=== PATIENT | male | born 1930 | race Caucasian/White ===

== ENCOUNTER 2016-12-24 07:55 | Day surgery (SDC) | payer MEDICARE, BC, MEDICAID ==
[~2016-12-24 07:55] MED LIST: Lactated Ringers 1,000 ML IV SCH; Lidocaine 1%/Sod Bicarbonate in NS 8.4% 1 ML Syringe IV PRN; Sodium Chloride 0.9% 10 ML Syringe FLUSH PRN
[2016-12-24] MEDS ORDERED: Lidocaine 1% 30 ML SDV ONE (09:36)
--- NOTE | 2016-12-24 10:07 | PCM.PREANE ---
Preanesthetic Assessment - Anesthesia/Transfusion/Family Hx Anesthesia History: Prior Anesthesia Without Reaction Family History of Anesthesia Reaction: No Transfusion History: Prior Transfusion Without Reaction - Review of Systems General: No Symptoms Pulmonary: No Symptoms Cardiovascular: No Symptoms Gastrointestinal: Nausea (illness several weeks ago. now resolved) Neurological: No Symptoms Other: Reports: Easy Bruising, Depression, Anxiety - Physical Assessment NPO Status Date: 12/23/16 NPO Status Time: 20:30 O2 Sat by Pulse Oximetry: 95 Respiratory Rate: 18 Vital Signs: Last Vital Signs Temp 36.7 C 12/24/16 08:00 Pulse 59 L 12/24/16 08:00 Resp 18 12/24/16 08:00 BP 155/76 H 12/24/16 08:00 Pulse Ox 95 12/24/16 08:00 Height: 1.7 m Weight: 88.451 kg ASA Class: 3 Mental Status: Alert & Oriented x3 Airway Class: Mallampati = 2 Dentition: Reports: Dentures (upper plate), Edentulous (upper), Missing Tooth/ Teeth (missing all but six front lower teeth) Thyro-Mental Finger Breadths: 3 ROM/Head Extension: Full Lungs: Clear to auscultation, Normal respiratory effort, Decreased breath sounds - Lab Values: Labs 12/17/16 WBC - 3 L Hgb - 10.4 L HCT - 32.5 L PLT - 61 L Na - 143 K - 3.6 Cl - 104 CO2 - 32 BUN - 29 H Cr - 1.02 Glu - 98 - Allergies Allergies/Adverse Reactions: Allergies Allergy/AdvReac Type Severity Reaction Status Date / Time prednisone Allergy Cannot Verified 12/23/16 15:42 Remember - Blood Blood Available: No - Anesthesia Plan Beta Deven: Metoprolol Med Last Dose Date: 12/24/16 Med Last Dose Time: 05:00 - Acknowledgements Anesthesia Type Planned: MAC Pt an Appropriate Candidate for the Planned Anesthesia: Yes Alternatives and Risks of Anesthesia Discussed w Pt/Guardian: Yes Pt/Guardian Understands and Agrees with Anesthesia Plan: Yes PreAnesthesia Questionnaire HEENT History: Reports: Hard of Hearing, Impaired Vision Other HEENT History: left hearing aid, uses glasses Cardiovascular History: Reports: CAD, High Cholesterol, Hypertension, Pacemaker , Stents, Other (See Below) Other Cardiovascular History: pericardial effusion Respiratory History: Reports: Other (See Below) Other Respiratory History: malignant pulmonary neoplasm, dyspnea Gastrointestinal History: Reports: GERD Genitourinary History: Reports: BPH, Prostate Disorder, Retention, Urinary Other Genitourinary History: urinary retention [employer]ICER History: Reports: None Musculoskeletal History: Reports: Arthritis, Back Pain, Chronic, Other (See Below) Other Musculoskeletal History: degenerative disk disease, osteopenia Psychiatric History: Reports: Anxiety, Depression Endocrine/Metabolic History: Reports: None Hematologic History: Reports: Anemia, Blood Transfusion(s), Other (See Below) Other Hematologic History: hypokalemia Immunologic History: Reports: None Oncologic (Cancer) History: Reports: Colon, Lung, Prostate Dermatologic History: Reports: None - Past Surgical History Head Surgeries/Procedures: Reports: None HEENT Surgical History: Reports: Cataract Surgery Cardiovascular Surgical History: Reports: Pacer Respiratory Surgical History: Reports: Pneumonectomy Other Respiratory Surgeries/Procedures: right lung removed GI Surgical History: Reports: Cholecystectomy, Colonoscopy, Other (See Below) Other GI Surgeries/Procedures: Colectomy Female Surgical History: Male Surgical History: Reports: Prostate Biopsy, Prostatectomy, TURP- Transurethral Resection of Prostate Neurological Surgical History: Reports: Other (See Below) Other Neurological Surgeries/Procedures: spine surgery x 2 Other Musculoskeletal Surgeries/Procedures:: Right ankle ORIF - SUBSTANCE USE Smoking Status *Q: Former Smoker Tobacco Use Within Last Twelve Months: Cigarettes Days Per Week of Alcohol Use: 0 Recreational Drug Use History: No - HOME MEDS Home Medications: Home Meds ALPRAZolam [Alprazolam ODT] 0.5 mg PO Q4H 02/02/14 [History] Allopurinol [Zyloprim] 150 mg PO DAILY 02/02/14 [History] Aspirin [[place] Chewable Aspirin] 81 mg PO DAILY 02/02/14 [History] Calcium Carb/Vit D3/Minerals [Calcium 1,200 mg Tablet Chew] 500 mg PO DAILY [History] Clopidogrel [Plavix] 75 mg PO DAILY 02/02/14 [History] Cyanocobalamin (Vitamin B12) [Vitamin B12] 1,000 mcg PO DAILY 02/02/14 [History] Ferrous Sulfate [Iron] 325 mg PO TID 02/02/14 [History] Furosemide [Lasix] 40 mg PO DAILY 02/02/14 [History] Metoprolol Tartrate 25 mg PO BID 02/02/14 [History] Mirtazapine [Remeron] 30 mg PO BEDTIME 02/02/14 [History] Potassium Chloride [Klor-Con M20] 20 meq PO BID 02/02/14 [History] Rosuvastatin [Crestor] 10 mg PO DAILY 02/02/14 [History] amLODIPine [Norvasc] 5 mg PO DAILY 02/02/14 [History] Cholecalciferol (Vitamin D3) [Vitamin D3] 1,000 unit PO DAILY 12/29/15 [History] DULoxetine HCl [Duloxetine HCl] 30 mg PO DAILY 12/29/15 [History] Docusate Sodium [Colace] 100 - 200 mg PO DAILY PRN 12/29/15 [History] Polyethylene Glycol 3350 [MiraLAX] 17 gm PO DAILY 12/29/15 [History] Sennosides [Senna] 8.6 - 17.2 mg PO DAILY PRN 12/29/15 [History] Acetaminophen [Tylenol Extra Strength] 1,000 mg PO BEDTIME 12/23/16 [History] Acetaminophen [Tylenol] 650 mg PO TID PRN 12/23/16 [History] Captopril/Hydrochlorothiazide [Captopril-Hctz 50-25 mg Tablet] 1 tab PO BID 06/29 [History] Hydrocodone/Acetaminophen [Hydrocodon-Acetaminoph 7.5-325] 1 tab PO Q4H PRN 06/29 [History] Meloxicam [Meloxicam] 7.5 mg PO DAILY 12/23/16 [History] - CURRENT (IN HOUSE) MEDS Current Meds: Current Medications Lactated Ringer's (Ringers, Lactated) 1,000 mls @ 125 mls/hr IV ASDIRECTED JOLEEN Last Admin: 12/24/16 08:30 Dose: 125 mls/hr Lidocaine/Sodium Bicarbonate (Buffered Lidocaine 1% In Ns 8.4%) 0.25 ml IV ONETIME PRN PRN Reason: Prior to IV Start Last Admin: 12/24/16 08:29 Dose: 0.25 ml Sodium Chloride (Saline Flush) 10 ml FLUSH ASDIRECTED PRN PRN Reason: Keep Vein Open Discontinued Medications Lidocaine HCl (Xylocaine-Mpf 1%) Confirm Administered Dose 30 ml .ROUTE .STK- MED ONE Stop: 12/24/16 09:37
[2016-12-24] MEDS ORDERED: Bacitracin Oint 15 GM Tube ONE (10:48)
[2016-12-24] MEDS ORDERED: Lidocaine 1% with EPINEPHrine 1:100,000 20 ML MDV ONE (10:48)
[2016-12-24] MEDS ORDERED: Propofol 200 MG/20 ML SDV ONE (11:13)
[2016-12-24] MEDS ORDERED: fentaNYL 100 MCG/2 ML SDV ONE (11:14)
--- NOTE | 2016-12-24 12:44 | PCM.OPNOTE ---
- General Post-Op/Procedure Note Date of Surgery/Procedure: 12/24/16 Operative Procedure(s): excision of Basal cell cancer left cheek and rt cheek under frozen section control and excision of lesion on the left neck (no frozen section control Pre Op Diagnosis: basal cell cancer rt and left cheek and suspecious lesion left neck Post-Op Diagnosis: Same Anesthesia Technique: MAC Primary Surgeon: Socrates Marion EBL in mLs: 30 Complications: None Condition: Good
[2016-12-24 13:28] VITALS: BP 154/74
--- NOTE | 2016-12-25 09:46 | OR ---
DATE OF OPERATION: 12/24/2016 SURGEON: Socrates Marion MD PREOPERATIVE DIAGNOSIS: Basal cell carcinoma of the left cheek and right cheek; and suspicious lesion, possible basal cell, on the left side of the neck. POSTOPERATIVE DIAGNOSIS: Basal cell carcinoma of the left cheek and right cheek; and suspicious lesion, possible basal cell, on the left side of the neck. OPERATION PERFORMED: 1. Excision, under frozen section control, with layered closure of basal cell carcinoma of the left cheek and right cheek. 2. Excision of lesion on the left neck with primary closure. FINDINGS: Lesion in margin, left cheek, 2 cm; lesion in margin, right cheek, 2 cm; and lesion in margin, left neck, 3 cm. ANESTHESIA: Procedure done under MAC analgesia and 1% Xylocaine. DESCRIPTION OF PROCEDURE: The patient was taken to the operating room, placed in supine position, connected to monitoring equipment, and given IV sedation. The left cheek was first prepped with Betadine and then it was marked, measured, and anesthetized with 1% Xylocaine and elliptically incised in Mary Jo's lines. This was sent to pathology with a silk suture on the medial margin. This came back with close medial margin and possible involvement of posterior deep margin. Re-excision of the medial margin was performed with inking the tumor site and also reexcision of the base with inking the tumor site. This went back for frozen section, showing that the lesion was completely excised. Bleeding points were controlled with electrocautery and suture ligature of 3-0 Vicryl suture, the subcuticular tissue closed with interrupted 3-0 Vicryl suture, and the skin with a running 4- 0 Prolene suture. Attention was directed to the left neck, and this was elliptically incised. Bleeding points were controlled with electrocautery. The skin closed, scalp, with 0 Prolene suture in a running mattress suture fashion. Attention was then directed to the right cheek. It was prepped with Betadine, marked, measured, and elliptically incised to conform with Mary Jo's lines. Medial side was marked with a silk suture, was sent for frozen section which showed that it was completely excised, clear margins. Bleeding points were controlled with electrocautery and the deep tissues brought together with interrupted 3-0 Vicryl suture, and the skin with interrupted 4-0 Prolene suture. Sterile dressing placed. The patient tolerated the procedure and was sent to recovery room in a stable condition. Estimated blood loss was approximately 30 mL. ESTIMATED BLOOD LOSS: MMODAL /[id number]
== END 2016-12-24 14:00 | disposition home or self-care (01) ==
LOC: JD.SDS 07:55
PROVIDERS: ATTEND Surgery
DX: C44.319 Basal cell carcinoma of skin of other parts of face (principal); C44.41 Basal cell carcinoma of skin of scalp and neck; D64.9 Anemia, unspecified; F41.9 Anxiety disorder, unspecified; Z85.038 Personal history of other malignant neoplasm of large intestine; Z85.118 Personal history of other malignant neoplasm of bronchus and lung; E78.5 Hyperlipidemia, unspecified; I10 Essential (primary) hypertension; Z85.46 Personal history of malignant neoplasm of prostate; Z95.0 Presence of cardiac pacemaker; Z98.890 Other specified postprocedural states; Z95.5 Presence of coronary angioplasty implant and graft; Z79.82 Long term (current) use of aspirin; Z79.1 Long term (current) use of non-steroidal anti-inflammatories (NSAID); Z79.02 Long term (current) use of antithrombotics/antiplatelets; Z79.899 Other long term (current) drug therapy; Z87.891 Personal history of nicotine dependence; Z88.8 Allergy status to other drugs, medicaments and biological substances
CPT/HCPCS: 11623; 11642; 12002; 12052; 88305; 88331; 88332; A9270; J3010; J7120; 00300; J2704

== ENCOUNTER 2018-08-30 21:33 | Inpatient (IN) | payer MEDICARE, BC, MEDICAID ==
--- NOTE | 2018-08-30 21:51 | EDM.PDOC ---
ED HPI GENERAL MEDICAL PROBLEM - General Chief Complaint: Neurological Problem Stated Complaint: [facility] Time Seen by Provider: 08/30/18 21:46 Source of Information: Reports: Family (family-- daughter and supply history ) History Limitations: Reports: Altered Mental Status (kingsleyetn is lethargic and offers no verbal response. Opens Lt eye on occassion. ) - History of Present Illness INITIAL COMMENTS - FREE TEXT/NARRATIVE: 88-year-old male presents to the ED per ambulance from local half-way. Patient normally is alert and verbal and able to converse easily with his and family. Apparently he's become more lethargic over the last 48 hours. Nurses at the half-way and had to try and help feed him. He does wear a fentanyl patch 75 g per hour which is on his right upper chest which apparently was changed today. Removed. At the time of presentation he is nonverbal and lethargic with BP 105/59. It's unclear how much fluids he may have gotten today. CODE STATUS is listed as DO NOT RESUSCITATE. O2 sats are fluctuating between 93 and 95% on room air. He is afebrile on exam in fact feels somewhat cool to touch. Apparently he fell recently with compression fractures in his lower back and is booked for kyphoplasty next week. He this is the reason he is on the fentanyl patch. Reviewed his med list reveals the patient received 2 [place] tablets 7.5/325 mg [id number] hrs. tonight. He's also been receiving alprazolam 0.5 mg every 4 hours and he did receive this evening's dose. He also received Remeron 30 mg by mouth at 1930 hrs. On inspection of his pupils they're fixed and pinpoint suggest the patient is likely [place] ties. I would not intervene at this point time medications were off as his O2 sats are still in the high 90s Patient's fentanyl patch 75 g per hour was changed at 1930 hrs. tonight as well. Apparently there is no change in the dosage. Is also on gabapentin and other sedative medication. His blood pressure medications were withheld this evening. On discussion with nursing staff at the half-way they report no fever chills or cough. Onset: Gradual Onset Date: 08/29/18 ( reports telephone call from the half-way yesterday indicating that he was exhibiting increased lethargy and they were having to feed him and he wasn't near as verbal as his norm. Daughter reports she does seem over the last 3 hours that she just got back from [place]. She indicates that he showed no verbal response or response to physical stimuli heaving habitus blood sugar checked.) Duration: Day(s): (It appears something happened yesterday or during the night yesterday.) Location: Reports: Generalized (Crease lethargy. Nonverbal where he is normally verbal and communicates with his .) Quality: Reports: Other Severity: Severe (Lethargic and nonverbal which is a real change for him over the last 48 hours.) Improves with: Reports: None Worsens with: Reports: None Context: Reports: Other (Seems to become gradually more lethargic and requiring help to eat over the last 48 hours.). Denies: Activity, Exercise, Lifting, Sick Contact, Trauma Associated Symptoms: Reports: Other (Nonverbal.) - Related Data Allergies Allergy/AdvReac Type Severity Reaction Status Date / Time prednisone Allergy Cannot Verified 12/23/16 15:42 Remember Home Meds: Home Meds ALPRAZolam [Alprazolam ODT] 0.5 mg PO TID 02/02/14 [History] Allopurinol [Zyloprim] 150 mg PO DAILY 02/02/14 [History] Aspirin [[place] Chewable Aspirin] 81 mg PO DAILY 02/02/14 [History] Calcium Carb/Vit D3/Minerals [Calcium 1,200 mg Tablet Chew] 500 mg PO DAILY [History] Clopidogrel [Plavix] 75 mg PO DAILY 02/02/14 [History] Cyanocobalamin (Vitamin B12) [Vitamin B12] 1,000 mcg PO DAILY 02/02/14 [History] Ferrous Sulfate [Iron] 325 mg PO DAILY 02/02/14 [History] Metoprolol Tartrate 25 mg PO BID 02/02/14 [History] Potassium Chloride [Klor-Con M20] 20 meq PO BID 02/02/14 [History] Cholecalciferol (Vitamin D3) [Vitamin D3] 1,000 unit PO DAILY 12/29/15 [History] DULoxetine HCl [Duloxetine HCl] 30 mg PO DAILY 12/29/15 [History] Docusate Sodium [Colace] 200 mg PO DAILY 12/29/15 [History] Polyethylene Glycol 3350 [MiraLAX] 17 gm PO DAILY PRN 12/29/15 [History] Acetaminophen [Tylenol] 650 mg PO BEDTIME 12/23/16 [History] Captopril/Hydrochlorothiazide [Captopril-Hctz 50-25 mg Tablet] 1 tab PO BID 06/29 [History] Hydrocodone/Acetaminophen [Hydrocodon-Acetaminoph 7.5-325] 1 tab PO QID [History] ALPRAZolam [Alprazolam Odt] 1 mg PO BEDTIME 08/30/18 [History] ALPRAZolam [Alprazolam Odt] 1 mg PO DAILY 08/30/18 [History] Acetaminophen [Tylenol] 325 mg PO TID PRN 08/30/18 [History] Bisacodyl [Dulcolax] 10 mg RC DAILY PRN 08/30/18 [History] Celecoxib 200 mg PO DAILY 08/30/18 [History] Doxazosin Mesylate [Cardura XL] 8 mg PO BEDTIME 08/30/18 [History] Gabapentin [Neurontin] 300 mg PO TID 08/30/18 [History] Hydrocodone/Acetaminophen [[place] 7.5-325 Tablet] 2 tab PO BEDTIME 08/30/18 [ History] Mirtazapine [Remeron] 45 mg PO BEDTIME 08/30/18 [History] Ondansetron [Zofran ODT] 4 mg PO TID PRN 08/30/18 [History] Pantoprazole Sodium [Protonix] 40 mg PO DAILY 08/30/18 [History] Polyvinyl Alcohol/Povidone/Pf [Refresh Classic Eye Drops] 1 drop EYEBOTH DAILY 08/30/18 [History] atorvaSTATin [Lipitor] 10 mg PO BEDTIME 08/30/18 [History] fentaNYL [Duragesic] 75 mcg TD Q72H 08/30/18 [History] Past Medical History HEENT History: Reports: Hard of Hearing, Impaired Vision Other HEENT History: left hearing aid, uses glasses Cardiovascular History: Reports: CAD, High Cholesterol, Hypertension, Pacemaker , Stents, Other (See Below) Other Cardiovascular History: pericardial effusion Respiratory History: Reports: Other (See Below) Other Respiratory History: malignant pulmonary neoplasm, dyspnea. Has had a right-sided pneumonectomy. Unclear if this was partial or complete Gastrointestinal History: Reports: GERD, Other (See Below) (History of colon cancer.) Genitourinary History: Reports: BPH, Prostate Disorder (History of prostate cancer.), Retention, Urinary Other Genitourinary History: urinary retention [employer] History: Reports: None Musculoskeletal History: Reports: Arthritis, Back Pain, Chronic, Other (See Below) Other Musculoskeletal History: degenerative disk disease, osteopenia. Previous lumbar fusion L5-S1. Recent fall with compression fracture of thoracic 12 vertebral. Psychiatric History: Reports: Anxiety, Depression Endocrine/Metabolic History: Reports: None Hematologic History: Reports: Anemia, Blood Transfusion(s), Other (See Below) Other Hematologic History: hypokalemia Immunologic History: Reports: None Oncologic (Cancer) History: Reports: Colon, Lung, Prostate Dermatologic History: Reports: None - Past Surgical History Head Surgeries/Procedures: Reports: None HEENT Surgical History: Reports: Cataract Surgery Cardiovascular Surgical History: Reports: Pacer Respiratory Surgical History: Reports: Pneumonectomy (Right side) Other Respiratory Surgeries/Procedures: right lung removed GI Surgical History: Reports: Cholecystectomy, Colonoscopy, Other (See Below) ( History right believes that the midline laparotomy incision was for colon cancer. Appears that a portion of his colon was resected she is unsure which segment.) Other GI Surgeries/Procedures: Colectomy Male Surgical History: Reports: Prostate Biopsy, Prostatectomy, TURP- Transurethral Resection of Prostate Neurological Surgical History: Reports: Other (See Below) Other Neurological Surgeries/Procedures: spine surgery x 2. Recent fall mid July. He has been on fentanyl patch since July 25 of this year due to compression fracture Other Musculoskeletal Surgeries/Procedures:: Right ankle ORIF Social & Family History - Family History Family Medical History: Noncontributory - Living Situation & Occupation Living situation: Reports: Extended Care Facility (Early a resident at [facility] in [place].) Occupation: Retired ED ROS GENERAL - Review of Systems Review Of Systems: Unable To Obtain (Patient is totally obtunded and lethargic and nonverbal. Bits of history were received from the half-way as well as the daughter and the .) - Physical Exam Exam: See Below Exam Limited By: Altered Mental Status (Lethargic and nonverbal. He also hasn't moved any of his limbs.) General Appearance: Obtunded, Other (Does not appear to be in any distress. He will occasionally open his left eye but offers no verbal response.) Eye Exam: Right Eye: Other (Pupils are fixed in pinpoint at 1-2 mm and no response to light.) Throat/Mouth: Normal Inspection, Normal Lips, Normal Oropharynx, Other (Tongue is mildly dry and coated) Head Exam: Atraumatic, Normocephalic, Other (No outward signs of head or facial trauma.) Neck: Normal Inspection, Supple, Non-Tender. No: Carotid Bruit, Lymphadenopathy (L), Lymphadenopathy (R) Respiratory/Chest: No Respiratory Distress, Decreased Breath Sounds (I cannot hear any urge to the right lung field. Apparently he's had a right-sided pneumonectomy.), Other (No injury to the left lung field sounds normal with no adventitial sounds.). No: Normal Breath Sounds, Respiratory Distress Cardiovascular: Regular Rate, Rhythm, No Gallop, No Rub, Irregularly Irregular ( Occasional ectopic beats appreciated. These appear to be PVCs on the monitor), Other (He does have a pacemaker defibrillator left upper anterior chest.) GI/Abdominal: Soft, Non-Tender, No Organomegaly, No Abnormal Bruit, No Mass, Abnormal Bowel Sounds (Decreased bowel sounds), Other (Well-healed midline surgical incision from the xiphoid process to the umbilicus) Neuro Exam (Abbreviated): Unresponsive DTR: 0: Bicep (R), Bicep (L), Tricep (R), Tricep (L), Patella (R), Patella (L), Achilles (R), Achilles (L) (Completely areflexic.) Back Exam: Other (Evidence of right sided thoracotomy wound well-healed.) Extremities: Pedal Edema (1+ pitting edema both lower extremities particularly at the ankles.) Psychiatric: Other (Patient is not responsive.) Skin Exam: Cool (He is cool to touch and temperatures listed at 36.4.) EKG INTERPRETATION EKG Date: 08/30/18 Time: 20:02 Rhythm: Other (100% ventricular paced rhythm at 65/m) Rate (Beats/Min): 65 [place]: Normal P-Wave: Absent QRS: Wide EKG Interpretation Comments: No further analysis attempted due to ventricular paced rhythm. Course - Vital Signs Last Recorded V/S: Last Vital Signs Temp 36.4 C 08/30/18 21:43 Pulse 75 08/30/18 21:43 Resp 17 08/30/18 21:43 BP 105/63 08/30/18 21:43 Pulse Ox 99 08/30/18 21:43 - Orders/Labs/Meds Orders: Active Orders 24 hr Category Date Time Status Blood Glucose Check, Bedside [RC] ONETIME Care 08/30/18 21:49 Active EKG Documentation Completion [RC] STAT Care 08/30/18 21:48 Active Insert Gloria Catheter [Insert Urinary Catheter] [OM.PC] Care 08/30/18 23:15 Ordered Q24H Oxygen Therapy [RC] PRN Care 08/30/18 21:49 Active Urinary Catheter Assessment [RC] ASDIRECTED Care 08/30/18 23:08 Active Chest 1V Frontal [CR] Stat Exams 08/30/18 21:48 Taken Head wo Cont [CT] Stat Exams 08/30/18 22:38 Taken CULTURE BLOOD [BC] Stat Lab 08/30/18 22:15 Received CULTURE BLOOD [BC] Stat Lab 08/30/18 22:24 Received Dextrose 5%-0.9% NaCl [Dextrose 5%-Normal Saline] 1,000 Med 08/30/18 23:30 Active ml IV ASDIRECTED Blood Culture x2 Reflex Set [OM.PC] Stat Oth 08/30/18 21:49 Ordered Medication Orders Dextrose/Sodium Chloride (Dextrose 5%-Normal Saline) 1,000 mls @ 75 mls/hr IV ASDIRECTED JOLEEN Labs: Laboratory Tests 08/30/18 08/30/18 08/30/18 Range/Units 20:15 20:15 20:15 WBC 2.62 L (4.23-9.07) K/mm3 RBC 3.62 L (4.63-6.08) M/mm3 Hgb 10.9 L (13.7-17.5) gm/L Hct 37.4 L (40.1-51.0) % MCV 103.3 H (79.0-92.2) fl MCH 30.1 (25.7-32.2) pg MCHC 29.1 L (32.2-35.5) g/dl RDW Std Deviation 51.9 H (35.1-43.9) fL Plt Count 48 L (163-337) K/mm3 MPV 13.3 H (9.4-12.3) fl Neutrophils % (Manual) 52 (40-60) % Band Neutrophils % 0 (0-10) % Lymphocytes % (Manual) 35 (20-40) % Atypical Lymphs % 0 % Monocytes % (Manual) 10 (2-10) % Eosinophils % (Manual) 3 (0.8-7.0) % Basophils % (Manual) 0 L (0.2-1.2) Platelet Estimate Marked dec Plt Morphology Comment See note Hypochromasia Moderate RBC Morph Comment Not Reportable ESR (0-15) mm/hr PT 11.5 (9.5-12.1) SECONDS INR 1.06 APTT 28 (24-31) SECONDS Sodium 142 (136-145) mEq/L Potassium 5.5 H (3.5-5.1) mEq/L Chloride 108 H (98-107) mEq/L Carbon Dioxide 34 H (21-32) mEq/L Anion Gap 5.5 (5-15) BUN 55 H (7-18) mg/dL Creatinine 1.9 H (0.7-1.3) mg/dL Est Cr Clr Drug Dosing TNP Estimated GFR (MDRD) 34 (>60) mL/min BUN/Creatinine Ratio 28.9 H (14-18) Glucose 106 (83-115) mg/dL POC Glucose (83-110) mg/dL Lactic Acid (0.4-2.0) mmol/L Calcium 8.6 (8.5-10.1) mg/dL Magnesium 2.0 (1.8-2.4) mg/dl Total Bilirubin 0.5 (0.2-1.0) mg/dL AST 17 (15-37) U/L ALT 22 (16-63) U/L Alkaline Phosphatase 88 (46-116) U/L CK-MB (CK-2) 1.1 (0-3.6) ng/ml Troponin I 0.082 H* (0.00-0.056) ng/mL C-Reactive Protein < 0.2 (<1.0) mg/dL NT-Pro-B Natriuret Pep (0-450) pg/mL Total Protein 6.1 L (6.4-8.2) g/dl Albumin 3.1 L (3.4-5.0) g/dl Globulin 3.0 gm/dL Albumin/Globulin Ratio 1.0 (1-2) Urine Color (Yellow) Urine Appearance (Clear) Urine pH (5.0-8.0) Ur Specific [place] (1.005-1.030) Urine Protein (Negative) Urine Glucose (UA) (Negative) Urine Ketones (Negative) Urine Occult Blood (Negative) Urine Nitrite (Negative) Urine Bilirubin (Negative) Urine Urobilinogen (0.2-1.0) Ur Leukocyte Esterase (Negative) Urine RBC (0-5) /hpf Urine WBC (0-5) /hpf Ur Epithelial Cells (0-5) /hpf Urine Bacteria (FEW) /hpf Hyaline Casts (0-5) /lpf Urine Mucus 08/30/18 08/30/18 08/30/18 Range/Units 20:15 20:15 21:49 WBC (4.23-9.07) K/mm3 RBC (4.63-6.08) M/mm3 Hgb (13.7-17.5) gm/L Hct (40.1-51.0) % MCV (79.0-92.2) fl MCH (25.7-32.2) pg MCHC (32.2-35.5) g/dl RDW Std Deviation (35.1-43.9) fL Plt Count (163-337) K/mm3 MPV (9.4-12.3) fl Neutrophils % (Manual) (40-60) % Band Neutrophils % (0-10) % Lymphocytes % (Manual) (20-40) % Atypical Lymphs % % Monocytes % (Manual) (2-10) % Eosinophils % (Manual) (0.8-7.0) % Basophils % (Manual) (0.2-1.2) Platelet Estimate Plt Morphology Comment Hypochromasia RBC Morph Comment ESR 10 (0-15) mm/hr PT (9.5-12.1) SECONDS INR APTT (24-31) SECONDS Sodium (136-145) mEq/L Potassium (3.5-5.1) mEq/L Chloride (98-107) mEq/L Carbon Dioxide (21-32) mEq/L Anion Gap (5-15) BUN (7-18) mg/dL Creatinine (0.7-1.3) mg/dL Est Cr Clr Drug Dosing Estimated GFR (MDRD) (>60) mL/min BUN/Creatinine Ratio (14-18) Glucose (83-115) mg/dL POC Glucose 106 (83-110) mg/dL Lactic Acid (0.4-2.0) mmol/L Calcium (8.5-10.1) mg/dL Magnesium (1.8-2.4) mg/dl Total Bilirubin (0.2-1.0) mg/dL AST (15-37) U/L ALT (16-63) U/L Alkaline Phosphatase (46-116) U/L CK-MB (CK-2) (0-3.6) ng/ml Troponin I (0.00-0.056) ng/mL C-Reactive Protein (<1.0) mg/dL NT-Pro-B Natriuret Pep 6673 H (0-450) pg/mL Total Protein (6.4-8.2) g/dl Albumin (3.4-5.0) g/dl Globulin gm/dL Albumin/Globulin Ratio (1-2) Urine Color (Yellow) Urine Appearance (Clear) Urine pH (5.0-8.0) Ur Specific [place] (1.005-1.030) Urine Protein (Negative) Urine Glucose (UA) (Negative) Urine Ketones (Negative) Urine Occult Blood (Negative) Urine Nitrite (Negative) Urine Bilirubin (Negative) Urine Urobilinogen (0.2-1.0) Ur Leukocyte Esterase (Negative) Urine RBC (0-5) /hpf Urine WBC (0-5) /hpf Ur Epithelial Cells (0-5) /hpf Urine Bacteria (FEW) /hpf Hyaline Casts (0-5) /lpf Urine Mucus 08/30/18 08/30/18 Range/Units 22:05 22:45 WBC (4.23-9.07) K/mm3 RBC (4.63-6.08) M/mm3 Hgb (13.7-17.5) gm/L Hct (40.1-51.0) % MCV (79.0-92.2) fl MCH (25.7-32.2) pg MCHC (32.2-35.5) g/dl RDW Std Deviation (35.1-43.9) fL Plt Count (163-337) K/mm3 MPV (9.4-12.3) fl Neutrophils % (Manual) (40-60) % Band Neutrophils % (0-10) % Lymphocytes % (Manual) (20-40) % Atypical Lymphs % % Monocytes % (Manual) (2-10) % Eosinophils % (Manual) (0.8-7.0) % Basophils % (Manual) (0.2-1.2) Platelet Estimate Plt Morphology Comment Hypochromasia RBC Morph Comment ESR (0-15) mm/hr PT (9.5-12.1) SECONDS INR APTT (24-31) SECONDS Sodium (136-145) mEq/L Potassium (3.5-5.1) mEq/L Chloride (98-107) mEq/L Carbon Dioxide (21-32) mEq/L Anion Gap (5-15) BUN (7-18) mg/dL Creatinine (0.7-1.3) mg/dL Est Cr Clr Drug Dosing Estimated GFR (MDRD) (>60) mL/min BUN/Creatinine Ratio (14-18) Glucose (83-115) mg/dL POC Glucose (83-110) mg/dL Lactic Acid 0.5 (0.4-2.0) mmol/L Calcium (8.5-10.1) mg/dL Magnesium (1.8-2.4) mg/dl Total Bilirubin (0.2-1.0) mg/dL AST (15-37) U/L ALT (16-63) U/L Alkaline Phosphatase (46-116) U/L CK-MB (CK-2) (0-3.6) ng/ml Troponin I (0.00-0.056) ng/mL C-Reactive Protein (<1.0) mg/dL NT-Pro-B Natriuret Pep (0-450) pg/mL Total Protein (6.4-8.2) g/dl Albumin (3.4-5.0) g/dl Globulin gm/dL Albumin/Globulin Ratio (1-2) Urine Color Yellow (Yellow) Urine Appearance Slt cloudy H (Clear) Urine pH 5.5 (5.0-8.0) Ur Specific [place] 1.020 (1.005-1.030) Urine Protein Negative (Negative) Urine Glucose (UA) Negative (Negative) Urine Ketones Negative (Negative) Urine Occult Blood Negative (Negative) Urine Nitrite Negative (Negative) Urine Bilirubin Negative (Negative) Urine Urobilinogen 0.2 (0.2-1.0) Ur Leukocyte Esterase Negative (Negative) Urine RBC 0-5 (0-5) /hpf Urine WBC 0-5 (0-5) /hpf Ur Epithelial Cells Not seen (0-5) /hpf Urine Bacteria Not seen (FEW) /hpf Hyaline Casts 0-5 (0-5) /lpf Urine Mucus Not Reportable Meds: Medications Generic Name Dose Route Start Last Admin Trade Name Freq PRN Reason Stop Dose Admin Dextrose/Sodium Chloride 1,000 mls @ 75 mls/hr 08/30/18 23:30 Dextrose 5%-Normal Saline IV ASDIRECTED JOLEEN Discontinued Medications Generic Name Dose Route Start Last Admin Trade Name Freq PRN Reason Stop Dose Admin Furosemide 60 mg 08/30/18 23:07 08/30/18 23:30 Lasix IVPUSH 08/30/18 23:08 60 mg NOW ONE Administration Dextrose/Sodium Chloride 1,000 mls @ 500 mls/hr 08/30/18 22:00 08/30/18 22:45 Dextrose 5%-Normal Saline IV 500 mls/hr ASDIRECTED JOLEEN Administration Naloxone HCl 0.4 mg 08/30/18 22:38 08/30/18 23:25 Narcan IVPUSH 08/30/18 22:39 0.4 mg ONETIME ONE Administration - Radiology Interpretation Free Text/Narrative:: 88-year-old male presents to the ED per ambulance from [facility]. Patient is on a multitude of medications that would provide sedative affect. Apparently he's developed increased lethargy since yesterday and his become nonverbal. Normally communicates with his normally. Patient has had a recent fall with suspected fracture of his lower back and is scheduled for kyphoplasty with Dr. Qiu towards end of this month. Patient is currently on a fentanyl patch 75 mcg/h it was last changed at 1930 hrs. this evening. Patient is also on alprazolam 0.5 mg every 4 hours and he did receive his medication tonight. He also received Remeron 30 mg by mouth at bedtime dose that believe this was 1930 hrs. nor "7.5/325 mg tabs 2 at 1930 hrs. as well. On assessment his vital signs show BP was 105/68. Is now followed to 92/54. He currently has IV D5 normal saline running at 500 mils an hour. O2 sats are 97%. By history is had previous right-sided pneumonectomy for cancer. Has a history of prostate cancer and colon cancer.. Pupils are pinpoint in 1-2 mm suggesting that his current problem is that of excessive amount of opioids on board. At present his sats are well maintained at 97% on room air and he spends sleeping well. Therefore I'm not going to reverse him with Narcan. I will if his blood pressure falls any further is does not respond to IV fluid bolus. The Fentanyl patch has been removed. Due to his temperature being 96.4 last tube him to be placed in the bear hugger to warm him. Septic workup will also be completed as well as rule out of cardiac event. One view chest x-ray be obtained . Blood sugar at the bedside side was 106. - Re-Assessments/Exams Free Text/Narrative Re-Assessment/Exam: 08/30/18 22:29 BP is 97/53 at this time. 08/30/18 22:43 but pressures fallen to 94/47. I will therefore give him Narcan 0.4 mg IV bolus. I spoke with Dr. Lopez test preparation tutor hospitalist. He likely needs to be admitted to the intensive care unit for management of his hypothermia and suspect opioid overdose. CT head will also be performed to rule out any intracranial cause for his altered level of mental status. Review of x-rays done August 21 reveal that he has a severe compression fracture of the T12 vertebra. 08/30/18 22:53 pressure has jumped up to 128/61 well being catheterized. Therefore responding to stimuli. 08/30/18 23:03 chest x-ray done portably reveals complete white out of the right lung field compatible with complete pneumonectomy in the past. The heart has moved over to the right side. It appears enlarged. There is a prominent aortic arch. There appears to be diffuse vascular congestion involving the right perihilar area and lung. No pleural effusion. 08/30/18 23:06 Labs reveal a leukopenia with a white count of 2.62. Neutrophils 52% with no bands reported and 35% lymphocytes. Hemoglobin is 10.9 with hematocrit of 37.4 platelet count is also low at 48,000. Recent appears to have some form of bone marrow suppression. PT is 11.5 with an INR of 1.06. PTT is 28. Sodium is 142. Potassium is mildly elevated at 5.5. He has received Lasix 40 mg IV and this should suffice to help bring it down. Chloride is 108 with a bicarbonate of 34 i.e. CO2 retainer. Anion gap is 5.5. BUN is 55. With a creatinine of 1.9. GFR is 34 i.e. stage III chronic kidney disease and does appear to be volume depleted. BUN/creatinine ratio is 28.9. Glucose 106 lactic acid 0.5. Calcium 8.6 magnesium normal at 2.0. Liver function normal. CK-MB fraction 1.1. Troponin I is slightly elevated at 0.082. This is within normal limits when compared to his age. C-reactive protein is less than 0.2. BNP is markedly elevated at 6673. Total protein is 6.1 with an albumin fraction low at 3.1. The dip on the urine is normal. The micro-is pending. His scar blood pressure is down to 97/81. Going to turn his IV down to 100 mils per hour because he is in significant failure. Will give him Lasix 60 mg IV. Gloria catheter will be placed with 0 metric measuring. 08/30/18 23:23 CT head has been completed. It does not reveal any mass effect or midline shift or intracranial hemorrhage. It shows advanced degenerative changes. Diffuse demyelination changes in both basal ganglia appreciated. Slightly dilated lateral ventricles was encephalomalacia of the anterior horns. No obvious infarct identified. Urinalysis micro-is completely normal. Gloria catheter will now be placed and dose of Narcan 0.4 mg has been given. Free Text/Narrative Re-Assessment/Exam: 08/30/18 23:30 he is much more alert agitated somewhat shaking open both eyes and did try to speak a little bit to me. BP is 132/61 after the Narcan 0.4 mg IV. 08/31/18 00:11 he still little bit fidgety and agitated but he's not become verbal or anything yet. Her pressure is much improved at 132/99. The catheter has been placed due to the need for Lasix. Twice would be wet at all times. Spoke with on-call hospice Dr. Lopez and she agrees to admission to the [facility] surgery on telemetry. I will write bridge orders in this regard IV has been turned down to D5 normal saline at 75 mils per hour. He will require repeat Lasix dose at 0600 hrs. this morning. Stressed the findings with his and daughter. Departure - Departure Time of Disposition: 00:29 Disposition: Admitted As Inpatient 68 Condition: Fair Clinical Impression: Altered level of consciousness, Thrombocytopenia, Volume depletion, Chronic renal insufficiency, stage III (moderate) Adverse effects of medication Qualifiers: Encounter type: initial encounter Qualified Code(s): T50.905A - Adverse effect of unspecified drugs, medicaments and biological substances, initial encounter Traumatic compression fracture of T12 thoracic vertebra Qualifiers: Encounter type: subsequent encounter Fracture healing: with routine healing Qualified Code(s): S22.080D - Wedge compression fracture of T11-T12 vertebra, subsequent encounter for fracture with routine healing Leukopenia Qualifiers: Leukopenia type: unspecified Qualified Code(s): D72.819 - Decreased white blood cell count, unspecified Anemia Qualifiers: Anemia type: iron deficiency Congestive heart failure Qualifiers: Heart failure type: diastolic Heart failure chronicity: acute on chronic Qualified Code(s): I50.33 - Acute on chronic diastolic (congestive) heart failure - Discharge Information *PRESCRIPTION DRUG MONITORING PROGRAM REVIEWED*: Not Applicable *COPY OF PRESCRIPTION DRUG MONITORING REPORT IN PATIENT BERNADETTE: Not Applicable Referrals: Espinoza Ervin MD [Primary Care Provider] - Forms: ED Department Discharge - My Orders Last 24 Hours: My Active Orders 08/30/18 21:48 EKG Documentation Completion [RC] STAT Chest 1V Frontal [CR] Stat 08/30/18 21:49 Blood Glucose Check, Bedside [RC] ONETIME Oxygen Therapy [RC] PRN Blood Culture x2 Reflex Set [OM.PC] Stat 08/30/18 22:15 CULTURE BLOOD [BC] Stat 08/30/18 22:24 CULTURE BLOOD [BC] Stat 08/30/18 22:38 Head wo Cont [CT] Stat 08/30/18 23:08 Urinary Catheter Assessment [RC] ASDIRECTED 08/30/18 23:15 Insert Gloria Catheter [Insert Urinary Catheter] [OM.PC] Q24H 08/30/18 23:30 Dextrose 5%-0.9% NaCl [Dextrose 5%-Normal Saline] 1,000 ml IV ASDIRECTED - Assessment/Plan Last 24 Hours: My Active Orders 08/30/18 21:48 EKG Documentation Completion [RC] STAT Chest 1V Frontal [CR] Stat 08/30/18 21:49 Blood Glucose Check, Bedside [RC] ONETIME Oxygen Therapy [RC] PRN Blood Culture x2 Reflex Set [OM.PC] Stat 08/30/18 22:15 CULTURE BLOOD [BC] Stat 08/30/18 22:24 CULTURE BLOOD [BC] Stat 08/30/18 22:38 Head wo Cont [CT] Stat 08/30/18 23:08 Urinary Catheter Assessment [RC] ASDIRECTED 08/30/18 23:15 Insert Gloria Catheter [Insert Urinary Catheter] [OM.PC] Q24H 08/30/18 23:30 Dextrose 5%-0.9% NaCl [Dextrose 5%-Normal Saline] 1,000 ml IV ASDIRECTED
[2018-08-30] MEDS ORDERED: Dextrose 5%-0.9% NaCl 1,000 ML IV SCH ×2 (22:00→23:30)
[2018-08-30] MEDS ORDERED: Naloxone 0.4 MG/ML SDV IVPUSH ONE (22:38)
[2018-08-30] MEDS ORDERED: Furosemide 40 MG/4 ML VIAL IVPUSH ONE (23:07)
[2018-08-31] MEDS ORDERED: Dextrose 5%-0.9% NaCl 1,000 ML IV SCH (02:45)
[2018-08-31] MEDS ORDERED: Furosemide 20 MG/2 ML VIAL IVPUSH ONE (06:00)
--- NOTE | 2018-08-31 06:33 | PCM.HP ---
H&P History of Present Illness - General Date of Service: 08/31/18 Admit Problem/Dx: Admission Diagnosis/Problem Admission Diagnosis/Problem Altered level of consciousness Source of Information: Patient, Old Records, Provider, RN, RN Notes Reviewed History Limitations: Reports: No Limitations - History of Present Illness Initial Comments - Free Text/Narative: Ehsan Lama is a 88 yo male who presents to our ED yesterday evening () via [facility] [place] from [facility]. Patient reportedly became more lethargic over the past 48 hours. He is usually alert and able to converse easily with and family. He does have a 75 g fentanyl patch on his right upper chest which was changed in the [facility] earlier in the day. His oxygen saturations were noted to be 9395% on room air and he was afebrile , actually appearing cool to the touch. He reportedly recently fell with compression fractures to his lower back and has a kyphoplasty booked for next week. This is why he is on the fentanyl patch. ED provider reviewed [facility] med list and it was also noted he received 2 Hawkins tablets of 7.5/325 mg earlier in the evening. He is also on alprazolam 0.5 mg every 4 hours and Remeron 30 mg in the evening. In the inial exam he is noted to have pinpoint pupils which are fixed. Oxygen saturation was remained in the high 90s. It is reported that his phenyl patch has not been changed in dosage. He is also noted to be on gabapentin another set sedated medications. He's recently had no fever or chills or cough. In the ED temperature 36.4C. Pulse 75. Respirations 17. Blood pressure 105/ 63. Pulse ox 99%. 12-lead EKG is obtained showing 100% ventricular paced rhythm at 65 beats per minutes. Labs are obtained: WBC is actually low at 2.62. Hemoglobin low at 10.9. Hematocrit low at 37.4. He is macrocytic. Platelet are very low at 48,000. Neutrophils are normal at 52%. PT is 11.5. INR 1.06. APTT 28. Sodium was 142. Potassium is high at 5.5. Chloride is high at 108. Carbon dioxide high at 34. Anion gap was 5.5. BUN is 55. Creatinine elevated at 1.9. EGFR 34. Glucose is 106. Calcium 8.6. Magnesium 2.0. Total bilirubin 0.5. AST 1718, ALT 22, alkaline phosphatase 88. CK-MB is 1.1. Troponin 0.082. CRP is less than 0.2. Protein is 6.1. ESR is 10. ProBNP is 6673. Lactic acid 0.5. He is given 60 mg IV push of Lasix and started on D5NS at 75 mils an hour. He is also given a half liter fluid bolus. Due to the suspected oversedation he is given 0.4 mg Narcan. UA is negative. Bear hugger is applied to warm him. Tera is obtained showing complete white out of the right lung compatible with complete pneumectomy in the past. Heart is shifted to the right and appears enlarged. Diffuse vascular congestion is also noted. Formal read is pending. CT scan of the head is obtained and it does does not show any midline shift or intracranial hemorrhage. Formal read is pending. Gloria catheter is then placed. He responded to the Narcan. He is shaky, opens both eyes, and does try to speak a little bit. Blood cultures were also obtained. He carries a history of: CAD, HLD, hypertension, pacemaker, stents, malignant pulmonary neoplasm, dyspnea, right sided pneumonectomy, GERD, BPH, history of colon cancer, urinary retention, arthritis, chronic back pain, degenerative disc disease, osteopenia, prior lumbar fusion at L5-S1, compression fracture of thoracic 12 vertebral body, anxiety, depression, hypokalemia, prostate cancer. He subsequently admitted to the medical floor on telemetry. He is a DNR. PCP is Dr. Ervin. - Related Data Allergies/Adverse Reactions: Allergies Allergy/AdvReac Type Severity Reaction Status Date / Time prednisone Allergy Cannot Verified 08/31/18 02:51 Remember Home Medications: Home Meds ALPRAZolam [Alprazolam ODT] 0.5 mg PO TID 02/02/14 [History] Allopurinol [Zyloprim] 150 mg PO DAILY 02/02/14 [History] Aspirin [[place] Chewable Aspirin] 81 mg PO DAILY 02/02/14 [History] Calcium Carb/Vit D3/Minerals [Calcium 1,200 mg Tablet Chew] 500 mg PO DAILY [History] Clopidogrel [Plavix] 75 mg PO DAILY 02/02/14 [History] Cyanocobalamin (Vitamin B12) [Vitamin B12] 1,000 mcg PO DAILY 02/02/14 [History] Ferrous Sulfate [Iron] 325 mg PO DAILY 02/02/14 [History] Metoprolol Tartrate 25 mg PO BID 02/02/14 [History] Potassium Chloride [Klor-Con M20] 20 meq PO BID 02/02/14 [History] Cholecalciferol (Vitamin D3) [Vitamin D3] 1,000 unit PO DAILY 12/29/15 [History] DULoxetine HCl [Duloxetine HCl] 30 mg PO DAILY 12/29/15 [History] Docusate Sodium [Colace] 200 mg PO DAILY 12/29/15 [History] Polyethylene Glycol 3350 [MiraLAX] 17 gm PO DAILY PRN 12/29/15 [History] Acetaminophen [Tylenol] 650 mg PO BEDTIME 12/23/16 [History] Captopril/Hydrochlorothiazide [Captopril-Hctz 50-25 mg Tablet] 1 tab PO BID 06/29 [History] Hydrocodone/Acetaminophen [Hydrocodon-Acetaminoph 7.5-325] 1 tab PO QID [History] ALPRAZolam [Alprazolam Odt] 1 mg PO BEDTIME 08/30/18 [History] ALPRAZolam [Alprazolam Odt] 1 mg PO DAILY 08/30/18 [History] Acetaminophen [Tylenol] 325 mg PO TID PRN 08/30/18 [History] Bisacodyl [Dulcolax] 10 mg RC DAILY PRN 08/30/18 [History] Celecoxib 200 mg PO DAILY 08/30/18 [History] Doxazosin Mesylate [Cardura XL] 8 mg PO BEDTIME 08/30/18 [History] Gabapentin [Neurontin] 300 mg PO TID 08/30/18 [History] Hydrocodone/Acetaminophen [[place] 7.5-325 Tablet] 2 tab PO BEDTIME 08/30/18 [ History] Mirtazapine [Remeron] 45 mg PO BEDTIME 08/30/18 [History] Ondansetron [Zofran ODT] 4 mg PO TID PRN 08/30/18 [History] Pantoprazole Sodium [Protonix] 40 mg PO DAILY 08/30/18 [History] Polyvinyl Alcohol/Povidone/Pf [Refresh Classic Eye Drops] 1 drop EYEBOTH DAILY 08/30/18 [History] atorvaSTATin [Lipitor] 10 mg PO BEDTIME 08/30/18 [History] fentaNYL [Duragesic] 75 mcg TD Q72H 08/30/18 [History] Calcium Carbonate/Vitamin D3 [Calcium 500-Vit D3 600 Caplet] 1 tab PO DAILY [History] Past Medical History HEENT History: Reports: Hard of Hearing, Impaired Vision Other HEENT History: left hearing aid, uses glasses Cardiovascular History: Reports: CAD, High Cholesterol, Hypertension, Pacemaker , Stents, Other (See Below) Other Cardiovascular History: pericardial effusion Respiratory History: Reports: Other (See Below) Other Respiratory History: malignant pulmonary neoplasm, dyspnea. Has had a right-sided pneumonectomy. Unclear if this was partial or complete Gastrointestinal History: Reports: GERD, Other (See Below) (History of colon cancer.) Genitourinary History: Reports: BPH, Prostate Disorder (History of prostate cancer.), Retention, Urinary Other Genitourinary History: urinary retention FLUTE GRINDER History: Reports: None Musculoskeletal History: Reports: Arthritis, Back Pain, Chronic, Other (See Below) Other Musculoskeletal History: degenerative disk disease, osteopenia. Previous lumbar fusion L5-S1. Recent fall with compression fracture of thoracic 12 vertebral. Psychiatric History: Reports: Anxiety, Depression Endocrine/Metabolic History: Reports: None Hematologic History: Reports: Anemia, Blood Transfusion(s), Other (See Below) Other Hematologic History: hypokalemia Immunologic History: Reports: None Oncologic (Cancer) History: Reports: Colon, Lung, Prostate Dermatologic History: Reports: None - Past Surgical History Head Surgeries/Procedures: Reports: None HEENT Surgical History: Reports: Cataract Surgery Cardiovascular Surgical History: Reports: Pacer Respiratory Surgical History: Reports: Pneumonectomy (Right side) Other Respiratory Surgeries/Procedures: right lung removed GI Surgical History: Reports: Cholecystectomy, Colonoscopy, Other (See Below) ( History right believes that the midline laparotomy incision was for colon cancer. Appears that a portion of his colon was resected she is unsure which segment.) Other GI Surgeries/Procedures: Colectomy Male Surgical History: Reports: Prostate Biopsy, Prostatectomy, TURP- Transurethral Resection of Prostate Neurological Surgical History: Reports: Other (See Below) Other Neurological Surgeries/Procedures: spine surgery x 2. Recent fall mid July. He has been on fentanyl patch since July 25 of this year due to compression fracture Other Musculoskeletal Surgeries/Procedures:: Right ankle ORIF Social & Family History - Family History Family Medical History: Noncontributory - Tobacco Use Smoking Status *Q: Unknown Ever Smoked Used Tobacco, but Quit: Yes Month/Year Tobacco Last Used: 50 yrs Second Hand Smoke Exposure: No - Caffeine Use Caffeine Use: Reports: Coffee, Tea Caffeine Use Comment: unknown - Recreational Drug Use Recreational Drug Use: No - Living Situation & Occupation Living situation: Reports: Extended Care Facility (Early a resident at [facility] in [place].) Occupation: Retired H&P Review of Systems - Review of Systems: Review Of Systems: See Below General: Reports: No Symptoms. Denies: Fever, Chills, Malaise, Weakness, Fatigue HEENT: Reports: No Symptoms, Other (Extremely hard of hearing ). Denies: Headaches, Sore Throat Pulmonary: Reports: No Symptoms. Denies: Shortness of Breath, Wheezing, Cough, Sputum Cardiovascular: Reports: No Symptoms. Denies: Chest Pain, Palpitations, Dyspnea on Exertion, Lightheadedness Gastrointestinal: Reports: No Symptoms. Denies: Abdominal Pain, Constipation, Distension, Nausea, Vomiting Genitourinary: Reports: Incontinence, Retention. Denies: Pain Musculoskeletal: Reports: No Symptoms, Back Pain (chronic 2/2 compression fx ), Joint Pain (hip pain ) Skin: Reports: No Symptoms. Denies: Cyanosis Psychiatric: Reports: No Symptoms Neurological: Reports: Tremors. Denies: Headache, Numbness, Seizure, Tingling, Trouble Speaking, Weakness Hematologic/Lymphatic: Reports: No Symptoms Immunologic: Reports: No Symptoms Exam - Exam Exam: See Below - Vital Signs Vital Signs: Last Vital Signs Temp 97.9 F 08/31/18 03:36 Pulse 65 08/31/18 03:36 Resp 20 08/31/18 03:36 BP 100/56 L 08/31/18 03:36 Pulse Ox 97 08/31/18 03:36 Weight: 192 lb 14.4 oz - Exam Quality Assessment: Supplemental Oxygen General: Alert, Oriented, Cooperative. No: Mild Distress HEENT: Conjunctiva Clear, EACs Clear, EOMI, Hearing Intact, Mucosa Moist & [place] , Nares Patent, Posterior Pharynx Clear, Other (extremely hard of hearing ), PERRLA Neck: Supple, Trachea Midline Lungs: Clear to Auscultation, Normal Respiratory Effort Cardiovascular: Regular Rate, Regular Rhythm, Other (Paced rhythm ) GI/Abdominal Exam: Normal Bowel Sounds, Soft, Non-Tender, No Distention, No Abnormal Bruit (Male) Exam: Deferred Rectal (Males) Exam: Deferred Extremities: Normal Inspection, Non-Tender, No Pedal Edema, Normal Capillary Refill, Limited Range of Motion (2/2 pain ) Peripheral Pulses: 2+: Radial (L), Radial (R), Dorsalis Pedis (L), Dorsalis Pedis (R) Skin: Warm, Dry, Intact Neurological: Cranial Nerves Intact (grossly ) Neuro Extensive - Mental Status: Alert - Patient Data Lab Results Last 24 hrs: Laboratory Results - last 24 hr 08/30/18 08/30/18 08/30/18 Range/Units 20:15 20:15 20:15 WBC 2.62 L (4.23-9.07) K/mm3 RBC 3.62 L (4.63-6.08) M/mm3 Hgb 10.9 L (13.7-17.5) gm/L Hct 37.4 L (40.1-51.0) % MCV 103.3 H (79.0-92.2) fl MCH 30.1 (25.7-32.2) pg MCHC 29.1 L (32.2-35.5) g/dl RDW Std Deviation 51.9 H (35.1-43.9) fL Plt Count 48 L (163-337) K/mm3 MPV 13.3 H (9.4-12.3) fl Neutrophils % (Manual) 52 (40-60) % Band Neutrophils % 0 (0-10) % Lymphocytes % (Manual) 35 (20-40) % Atypical Lymphs % 0 % Monocytes % (Manual) 10 (2-10) % Eosinophils % (Manual) 3 (0.8-7.0) % Basophils % (Manual) 0 L (0.2-1.2) Platelet Estimate Marked dec Plt Morphology Comment See note Hypochromasia Moderate RBC Morph Comment Not Reportable ESR (0-15) mm/hr PT 11.5 (9.5-12.1) SECONDS INR 1.06 APTT 28 (24-31) SECONDS Sodium 142 (136-145) mEq/L Potassium 5.5 H (3.5-5.1) mEq/L Chloride 108 H (98-107) mEq/L Carbon Dioxide 34 H (21-32) mEq/L Anion Gap 5.5 (5-15) BUN 55 H (7-18) mg/dL Creatinine 1.9 H (0.7-1.3) mg/dL Est Cr Clr Drug Dosing TNP Estimated GFR (MDRD) 34 (>60) mL/min BUN/Creatinine Ratio 28.9 H (14-18) Glucose 106 (83-115) mg/dL POC Glucose (83-110) mg/dL Lactic Acid (0.4-2.0) mmol/L Calcium 8.6 (8.5-10.1) mg/dL Magnesium 2.0 (1.8-2.4) mg/dl Total Bilirubin 0.5 (0.2-1.0) mg/dL AST 17 (15-37) U/L ALT 22 (16-63) U/L Alkaline Phosphatase 88 (46-116) U/L CK-MB (CK-2) 1.1 (0-3.6) ng/ml Troponin I 0.082 H* (0.00-0.056) ng/mL C-Reactive Protein < 0.2 (<1.0) mg/dL NT-Pro-B Natriuret Pep (0-450) pg/mL Total Protein 6.1 L (6.4-8.2) g/dl Albumin 3.1 L (3.4-5.0) g/dl Globulin 3.0 gm/dL Albumin/Globulin Ratio 1.0 (1-2) Urine Color (Yellow) Urine Appearance (Clear) Urine pH (5.0-8.0) Ur Specific [place] (1.005-1.030) Urine Protein (Negative) Urine Glucose (UA) (Negative) Urine Ketones (Negative) Urine Occult Blood (Negative) Urine Nitrite (Negative) Urine Bilirubin (Negative) Urine Urobilinogen (0.2-1.0) Ur Leukocyte Esterase (Negative) Urine RBC (0-5) /hpf Urine WBC (0-5) /hpf Ur Epithelial Cells (0-5) /hpf Urine Bacteria (FEW) /hpf Hyaline Casts (0-5) /lpf Urine Mucus MRSA (PCR) 08/30/18 08/30/18 08/30/18 Range/Units 20:15 20:15 21:49 WBC (4.23-9.07) K/mm3 RBC (4.63-6.08) M/mm3 Hgb (13.7-17.5) gm/L Hct (40.1-51.0) % MCV (79.0-92.2) fl MCH (25.7-32.2) pg MCHC (32.2-35.5) g/dl RDW Std Deviation (35.1-43.9) fL Plt Count (163-337) K/mm3 MPV (9.4-12.3) fl Neutrophils % (Manual) (40-60) % Band Neutrophils % (0-10) % Lymphocytes % (Manual) (20-40) % Atypical Lymphs % % Monocytes % (Manual) (2-10) % Eosinophils % (Manual) (0.8-7.0) % Basophils % (Manual) (0.2-1.2) Platelet Estimate Plt Morphology Comment Hypochromasia RBC Morph Comment ESR 10 (0-15) mm/hr PT (9.5-12.1) SECONDS INR APTT (24-31) SECONDS Sodium (136-145) mEq/L Potassium (3.5-5.1) mEq/L Chloride (98-107) mEq/L Carbon Dioxide (21-32) mEq/L Anion Gap (5-15) BUN (7-18) mg/dL Creatinine (0.7-1.3) mg/dL Est Cr Clr Drug Dosing Estimated GFR (MDRD) (>60) mL/min BUN/Creatinine Ratio (14-18) Glucose (83-115) mg/dL POC Glucose 106 (83-110) mg/dL Lactic Acid (0.4-2.0) mmol/L Calcium (8.5-10.1) mg/dL Magnesium (1.8-2.4) mg/dl Total Bilirubin (0.2-1.0) mg/dL AST (15-37) U/L ALT (16-63) U/L Alkaline Phosphatase (46-116) U/L CK-MB (CK-2) (0-3.6) ng/ml Troponin I (0.00-0.056) ng/mL C-Reactive Protein (<1.0) mg/dL NT-Pro-B Natriuret Pep 6673 H (0-450) pg/mL Total Protein (6.4-8.2) g/dl Albumin (3.4-5.0) g/dl Globulin gm/dL Albumin/Globulin Ratio (1-2) Urine Color (Yellow) Urine Appearance (Clear) Urine pH (5.0-8.0) Ur Specific [place] (1.005-1.030) Urine Protein (Negative) Urine Glucose (UA) (Negative) Urine Ketones (Negative) Urine Occult Blood (Negative) Urine Nitrite (Negative) Urine Bilirubin (Negative) Urine Urobilinogen (0.2-1.0) Ur Leukocyte Esterase (Negative) Urine RBC (0-5) /hpf Urine WBC (0-5) /hpf Ur Epithelial Cells (0-5) /hpf Urine Bacteria (FEW) /hpf Hyaline Casts (0-5) /lpf Urine Mucus MRSA (PCR) 08/30/18 08/30/18 08/31/18 Range/Units 22:05 22:45 00:50 WBC (4.23-9.07) K/mm3 RBC (4.63-6.08) M/mm3 Hgb (13.7-17.5) gm/L Hct (40.1-51.0) % MCV (79.0-92.2) fl MCH (25.7-32.2) pg MCHC (32.2-35.5) g/dl RDW Std Deviation (35.1-43.9) fL Plt Count (163-337) K/mm3 MPV (9.4-12.3) fl Neutrophils % (Manual) (40-60) % Band Neutrophils % (0-10) % Lymphocytes % (Manual) (20-40) % Atypical Lymphs % % Monocytes % (Manual) (2-10) % Eosinophils % (Manual) (0.8-7.0) % Basophils % (Manual) (0.2-1.2) Platelet Estimate Plt Morphology Comment Hypochromasia RBC Morph Comment ESR (0-15) mm/hr PT (9.5-12.1) SECONDS INR APTT (24-31) SECONDS Sodium (136-145) mEq/L Potassium (3.5-5.1) mEq/L Chloride (98-107) mEq/L Carbon Dioxide (21-32) mEq/L Anion Gap (5-15) BUN (7-18) mg/dL Creatinine (0.7-1.3) mg/dL Est Cr Clr Drug Dosing Estimated GFR (MDRD) (>60) mL/min BUN/Creatinine Ratio (14-18) Glucose (83-115) mg/dL POC Glucose (83-110) mg/dL Lactic Acid 0.5 (0.4-2.0) mmol/L Calcium (8.5-10.1) mg/dL Magnesium (1.8-2.4) mg/dl Total Bilirubin (0.2-1.0) mg/dL AST (15-37) U/L ALT (16-63) U/L Alkaline Phosphatase (46-116) U/L CK-MB (CK-2) (0-3.6) ng/ml Troponin I (0.00-0.056) ng/mL C-Reactive Protein (<1.0) mg/dL NT-Pro-B Natriuret Pep (0-450) pg/mL Total Protein (6.4-8.2) g/dl Albumin (3.4-5.0) g/dl Globulin gm/dL Albumin/Globulin Ratio (1-2) Urine Color Yellow (Yellow) Urine Appearance Slt cloudy H (Clear) Urine pH 5.5 (5.0-8.0) Ur Specific [place] 1.020 (1.005-1.030) Urine Protein Negative (Negative) Urine Glucose (UA) Negative (Negative) Urine Ketones Negative (Negative) Urine Occult Blood Negative (Negative) Urine Nitrite Negative (Negative) Urine Bilirubin Negative (Negative) Urine Urobilinogen 0.2 (0.2-1.0) Ur Leukocyte Esterase Negative (Negative) Urine RBC 0-5 (0-5) /hpf Urine WBC 0-5 (0-5) /hpf Ur Epithelial Cells Not seen (0-5) /hpf Urine Bacteria Not seen (FEW) /hpf Hyaline Casts 0-5 (0-5) /lpf Urine Mucus Not Reportable MRSA (PCR) Negative Result Diagrams: 08/31/18 08:40 08/31/18 08:40 - Problem List (1) Adverse effects of medication SNOMED Code(s): 49204942 ICD Code: T50.905A - ADVERSE EFFECT OF UNSP DRUG/MEDS/BIOL SUBST, INIT Status: Acute Priority: High Current Visit: Yes Qualifiers: Encounter type: initial encounter Qualified Code(s): T50.905A - Adverse effect of unspecified drugs, medicaments and biological substances, initial encounter (2) Altered level of consciousness SNOMED Code(s): 1160684 ICD Code: R40.4 - TRANSIENT ALTERATION OF AWARENESS Status: Acute Priority: High Current Visit: Yes (3) Anemia SNOMED Code(s): 044753574 ICD Code: D64.9 - ANEMIA, UNSPECIFIED Status: Chronic Priority: Medium Current Visit: No Qualifiers: Anemia type: iron deficiency (4) Chronic renal insufficiency, stage III (moderate) SNOMED Code(s): 616323489 ICD Code: N18.3 - CHRONIC KIDNEY DISEASE, STAGE 3 (MODERATE) Status: Chronic Priority: Medium Current Visit: Yes (5) Congestive heart failure SNOMED Code(s): 88135307 ICD Code: I50.9 - HEART FAILURE, UNSPECIFIED Status: Chronic Priority: Medium Current Visit: Yes Qualifiers: Heart failure type: diastolic Heart failure chronicity: chronic Qualified Code(s): I50.32 - Chronic diastolic (congestive) heart failure (6) Thrombocytopenia SNOMED Code(s): 051851164 ICD Code: D69.6 - THROMBOCYTOPENIA, UNSPECIFIED Status: Chronic Priority : High Current Visit: Yes (7) Traumatic compression fracture of T12 thoracic vertebra SNOMED Code(s): 589918917 ICD Code: S22.080A - WEDGE COMPRESSION FRACTURE OF T11-T12 VERTEBRA, INIT Status: Chronic Priority: Medium Current Visit: No Qualifiers: Encounter type: subsequent encounter Fracture healing: with routine healing Qualified Code(s): S22.080D - Wedge compression fracture of T11-T12 vertebra, subsequent encounter for fracture with routine healing (8) Volume depletion SNOMED Code(s): 63364352 ICD Code: E86.9 - VOLUME DEPLETION, UNSPECIFIED Status: Acute Priority: High Current Visit: Yes (9) Acute renal failure SNOMED Code(s): 63168896 ICD Code: N17.9 - ACUTE KIDNEY FAILURE, UNSPECIFIED Status: Acute Priority: High Current Visit: Yes Qualifiers: Acute renal failure type: unspecified Qualified Code(s): N17.9 - Acute kidney failure, unspecified (10) Anxiety SNOMED Code(s): 27870335 ICD Code: F41.9 - ANXIETY DISORDER, UNSPECIFIED Status: Chronic Priority : Medium Current Visit: No (11) Coronary artery disease SNOMED Code(s): 90963125 ICD Code: I25.10 - ATHSCL HEART DISEASE OF [place] CORONARY ARTERY W/O ANG PCTRS Status: Chronic Priority: Low Current Visit: No Qualifiers: Coronary Disease-Associated Artery/Lesion type: unspecified vessel or lesion type Associated angina: with stable angina (12) History of permanent cardiac pacemaker placement SNOMED Code(s): 334025009 ICD Code: Z95.0 - PRESENCE OF CARDIAC PACEMAKER Status: Chronic Priority : Medium Current Visit: No (13) S/P lobectomy of lung SNOMED Code(s): 29911671877020673, 036506780, [id number] ICD Code: Z90.2 - ACQUIRED ABSENCE OF LUNG [PART OF] Status: Chronic Priority: Medium Current Visit: No Problem List Initiated/Reviewed/Updated: Yes Orders Last 24hrs: Active Orders 24 hr Category Date Time Status Admission Status [Patient Status] [ADT] Routine ADT 08/31/18 00:20 Active Cooling Warming Measures [RC] ASDIRECTED Care 08/31/18 02:38 Active Insert Gloria Catheter [Insert Urinary Catheter] [OM.PC] Care 08/30/18 23:15 Ordered Q24H Oxygen Therapy [RC] PRN Care 08/30/18 21:49 Active Urinary Catheter Assessment [RC] 04,10,16,22 Care 08/30/18 23:08 Active Clear Liquid Diet [DIET] Diet 08/31/18 Breakfast Active Chest 1V Frontal [CR] Stat Exams 08/30/18 21:48 Taken Head wo Cont [CT] Stat Exams 08/30/18 22:38 Taken CULTURE BLOOD [BC] Stat Lab 08/30/18 22:15 Received CULTURE BLOOD [BC] Stat Lab 08/30/18 22:24 Received Dextrose 5%-0.9% NaCl [Dextrose 5%-Normal Saline] 1,000 Med 08/30/18 23:30 Active ml IV ASDIRECTED Dextrose 5%-0.9% NaCl [Dextrose 5%-Normal Saline] 1,000 Med 08/31/18 02:45 Active ml IV ASDIRECTED Ondansetron [Zofran] Med 08/31/18 02:35 Active 4 mg IVPUSH Q4H PRN Blood Culture x2 Reflex Set [OM.PC] Stat Oth 08/30/18 21:49 Ordered Code Status [Resuscitation Status] Routine Resus Stat 08/31/18 02:42 Ordered Medication Orders Dextrose/Sodium Chloride (Dextrose 5%-Normal Saline) 1,000 mls @ 75 mls/hr IV ASDIRECTED JOLEEN Dextrose/Sodium Chloride (Dextrose 5%-Normal Saline) 1,000 mls @ 75 mls/hr IV ASDIRECTED JOLEEN Ondansetron HCl (Zofran) 4 mg IVPUSH Q4H PRN PRN Reason: Nausea Assessment/Plan Comment:: I/P: Acute: Altered mental status, Resolved on floor -2/2 oversedation -Patient normally alert and able to hold conversation with ease -Lethargic and unable to communicate -Pinpoint pupils noted in ED -On multiple pain and anti-anxiety medications - has kyphoplasty scheduled 2/ 2 compression fracture -Head CT in ED negative for acute changes -UA negative, CXR negative for acute changes. -Oxygen saturations remained high -Narcan 0.4mg given with good results -Now more alert -Jigar consult to review medications Kidney failure -Acute on chronic -Baseline GFR appears to be in the upper 40s and low 50s -BUN 55-->46 -Creatinine 1.9-->1.6 -eGFR 34-->41 -IV fluids as ordered Elevated BNP -History of HTN but no heart failure noted in prior history -1+ pitting edema noted in ankles in ED, trace on floor -pro-BNP 6673-->4991 -CXR in ED shows increased lung markings - suspect chronic redistribution from pneumonectomy -60mg lasix given in ED -40mg lasix given today on floor -Gloria placed in ED for I&O monitoring -> discontinue -Continue diuretic as ordered -Monitor Elevated troponin, decreasing -Denies chest pain -12-lead EKG in ED shows 100% paced rhythm -Troponin 0.082-->0.072 -CKMB 1.1-->1.8 -Trend troponins Thrombocytopenia -Acute on chronic -Platelets 48-->57 -61-92 on prior visits -Avoid antiplatelet medications is possible -Monitor Chronic: Heart of hearing CAD HLD HTN Pacemaker Stents Malignant pulmonary neoplasm with subsequent right sided pneumonectomy GERD BPH Urinary retention Arthritis Chronic back pain DJD Osteopenia L5-S1 fusion Compression fx of T12 vertebra - scheduled for vertebroplasty at end of month with Dr. Talbert Anxiety Depression Anemia Colon cancer Prostate cancer Plan: Admit to medical floor on telemetry Other orders as indicated above Home medications as ordered PT/OT - needs to wear brace when ambulating CM/SW for discharge planning Routine AM labs DVT prophylaxis: SCDs; Pharmacological contraindicated 2/2 low platelets Code status: DNR; PCP: Dr. Ervin
[2018-08-31] MEDS ORDERED: Acetaminophen 325 MG Tab PO PRN (07:58)
--- NOTE | 2018-08-31 08:06 | CT ---
Head CT Technique: Multiple axial sections through the brain were obtained. Intravenous contrast was not utilized. Comparison: No prior intracranial imaging. Findings: Ventricles along with basal cisterns and sulci over the convexities are moderately prominent. 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 Minimal diminished density is noted within the periventricular white matter compatible small vessel ischemic demyelination change. No other abnormal parenchymal densities are seen. No evidence of intracranial hemorrhage. No midline shift or mass effect is seen. Bone window settings were reviewed which show mild mucosal thickening within the ethmoid sinuses. No acute calvarial abnormality is seen. Impression: 1. Senescent change as noted above. Sinus findings which are felt to be incidental. 2. No acute abnormality is identified. Diagnostic code #2 I agree with preliminary report from [facility], finalized on 08/31/18, 12:36 AM Central Time
--- NOTE | 2018-08-31 08:06 | CR ---
Chest: Portable view of the chest was obtained. Comparison: Prior chest x-ray of 12/29/15. Opacified right hemithorax is seen which is noted on previous exam. Pulmonary vessels are congested on the left side possibly due to vascular redistribution. Heart size is difficult to evaluate due to silhouetting on the right side but is felt to be within normal limits in size. Tortuous thoracic aorta is noted. Pacemaker is seen. Bony structures are osteopenic but grossly intact. Impression: 1. Opacified right chest which appears stable from prior chest x-ray. Please correlate if patient has correlating symptoms of right-sided pneumonectomy. 2. Increased left-sided lung markings most likely due to vascular redistribution from the right chest process. 3. Other incidental findings. Diagnostic code #3
[2018-08-31] MEDS ORDERED: hydrALAZINE 20 MG/ML SDV IVPUSH PRN (08:28)
[2018-08-31] MEDS ORDERED: Metoprolol Tartrate 5 MG/5 ML SDV IVPUSH PRN (08:28)
[2018-08-31] MEDS ORDERED: Bisacodyl 10 MG Supp RECTAL PRN (08:29)
[2018-08-31] MEDS ORDERED: Non-Formulary Medication 1 Each (Celecoxib [Celecoxib] 200 MG) PO SCH (09:00)
[2018-08-31] MEDS ORDERED: Potassium Chloride 20 MEQ Tab.ER PO SCH (09:00)
[2018-08-31] MEDS: DULoxetine 30 MG Cap PO SCH (09:10)
[2018-08-31] MEDS: Clopidogrel 75 MG Tab PO SCH (09:10)
[2018-08-31] MEDS: Docusate Sodium 100 MG Cap PO SCH (09:10)
[2018-08-31] MEDS: Carboxymethylcellulose Sodium 1% Ophth Gel 15 ML Bottle EYEBOTH SCH (09:10)
[2018-08-31] MEDS: Aspirin 81 MG Tab.Chew PO SCH (09:10)
[2018-08-31] MEDS: Ferrous Sulfate 325 MG Tab PO SCH (09:10)
[2018-08-31] MEDS: Gabapentin 300 MG Cap PO SCH ×2 (09:10→15:56)
[2018-08-31] MEDS: Cyanocobalamin (Vitamin B12) 1,000 MCG Tab PO SCH (09:10)
[2018-08-31] MEDS: Cholecalciferol (Vitamin D3) 1,000 Unit Tab PO SCH (09:11)
[2018-08-31] MEDS: ALPRAZolam 0.5 MG Tab PO SCH ×2 (09:11→15:56)
[2018-08-31] MEDS: Acetaminophen/HYDROcodone 325-5 MG Tab PO SCH ×3 (11:59→20:49)
[2018-08-31] MEDS: Mirtazapine 15 MG Tab PO SCH (20:42)
[2018-08-31] MEDS: Simvastatin 10 MG Tab PO SCH (20:43)
[2018-08-31] MEDS: Famotidine 20 MG Tab PO SCH (20:49)
[2018-08-31] MEDS: Metoprolol Tartrate 25 MG Tab PO SCH (20:50)
[2018-08-31] MEDS: Acetaminophen 325 MG Tab PO SCH (20:50)
[2018-08-31] MEDS ORDERED: DOXAZOSIN MESYLATE 8 MG PO SCH (21:00)
[2018-08-31] MEDS ORDERED: ALPRAZolam 1 MG Tab PO SCH (21:00)
[2018-09-01] MEDS: Metoprolol Tartrate 25 MG Tab PO SCH ×2 (08:34→22:03)
[2018-09-01] MEDS: Docusate Sodium 100 MG Cap PO SCH (08:36)
[2018-09-01] MEDS: Ferrous Sulfate 325 MG Tab PO SCH (08:36)
[2018-09-01] MEDS: DULoxetine 30 MG Cap PO SCH (08:44)
[2018-09-01] MEDS: Cholecalciferol (Vitamin D3) 1,000 Unit Tab PO SCH (08:44)
[2018-09-01] MEDS: Cyanocobalamin (Vitamin B12) 1,000 MCG Tab PO SCH (08:46)
[2018-09-01] MEDS: Clopidogrel 75 MG Tab PO SCH (08:47)
[2018-09-01] MEDS: Aspirin 81 MG Tab.Chew PO SCH (08:48)
[2018-09-01] MEDS: Allopurinol 300 MG Tab PO SCH (08:49)
[2018-09-01] MEDS: Acetaminophen/HYDROcodone 325-5 MG Tab PO SCH ×4 (09:02→22:01)
[2018-09-01] MEDS: Carboxymethylcellulose Sodium 1% Ophth Gel 15 ML Bottle EYEBOTH SCH (09:05)
[2018-09-01] MEDS: Furosemide 40 MG/4 ML VIAL IVPUSH SCH (09:05)
[2018-09-01] MEDS ORDERED: Magnesium Oxide 400 MG Tab PO ONE (10:00)
[2018-09-01] MEDS ORDERED: Magnesium Hydroxide 400 MG/5 ML Susp 30 ML Cup PO ONE (11:25)
--- NOTE | 2018-09-01 12:10 | PCM.PN ---
- General Info Date of Service: 09/01/18 Admission Dx/Problem (Free Text): Admission Diagnosis/Problem Admission Diagnosis/Problem Altered level of consciousness Subjective Update: In to see Ehsan. He was seen by Dr. Kimball yesterday and some medications were discontinued. He continues to complain of some mild pain but has been up walking to bathroom with back brace on. Will resume fentanyl patch at 50mcg now that other medications have been stopped or reduced. Her has had some nausea today. Scopolamine and zofran given with good results. Dr. Kimball has said he would like to be contacted should patient have any more episodes of anxiety and nursing is aware. Echo obtained this AM. He apparently had a positive MRSA screen at the clinic and then screen was negative here. Will start contact precautions for this reason. Overall he is doing ok. Swallow evaluation ordered after nursing reported concerns with daily medications. KEYBOARD OPERATOR will evaluate tomorrow. Plan is to ensure pain and anxiety are stable and then discharge back to SNF. Functional Status: Reports: Pain Controlled, Tolerating Diet, Ambulating, Urinating. Denies: New Symptoms - Review of Systems General: Reports: No Symptoms. Denies: Fever, Weakness, Fatigue, Malaise, Chills HEENT: Reports: No Symptoms. Denies: Headaches, Sore Throat Pulmonary: Reports: No Symptoms. Denies: Shortness of Breath, Cough, Sputum, Wheezing Cardiovascular: Reports: No Symptoms. Denies: Chest Pain, Palpitations, Dyspnea on Exertion, Edema Gastrointestinal: Reports: Nausea (comes and goes ). Denies: Abdominal Pain, Constipation, Diarrhea, Vomiting Genitourinary: Reports: No Symptoms Musculoskeletal: Reports: Back Pain (2/2 compression fx), Joint Pain (left hip- chronic ) Skin: Reports: No Symptoms Neurological: Reports: No Symptoms, Confusion (occasional ), Difficulty Walking (2/2 pain), Gait Disturbance (2/2 pain ) Psychiatric: Reports: No Symptoms, Anxiety (occasional episodes - easily redirected ) - Patient Data Vitals - Most Recent: Last Vital Signs Temp 98.4 F 09/01/18 08:00 Pulse 75 09/01/18 08:34 Resp 26 H 09/01/18 08:00 BP 145/82 H 09/01/18 08:34 Pulse Ox 93 L 09/01/18 08:00 Weight - Most Recent: 189 lb 2 oz I&O - Last 24 Hours: Intake & Output 08/31/18 09/01/18 09/01/18 22:59 06:59 14:59 Intake Total 1300 750 Output Total 2450 Balance -1150 750 Lab Results Last 24 Hours: Laboratory Results - last 24 hr 08/31/18 09/01/18 09/01/18 Range/Units 15:00 05:20 05:20 WBC 4.06 L (4.23-9.07) K/mm3 RBC 3.80 L (4.63-6.08) M/mm3 Hgb 11.4 L (13.7-17.5) gm/L Hct 37.6 L (40.1-51.0) % MCV 98.9 H (79.0-92.2) fl MCH 30.0 (25.7-32.2) pg MCHC 30.3 L (32.2-35.5) g/dl RDW Std Deviation 48.2 H (35.1-43.9) fL Plt Count 57 L (163-337) K/mm3 MPV 13.7 H (9.4-12.3) fl Neut % (Auto) 81.4 H (34.0-67.9) % Lymph % (Auto) 11.3 L (21.8-53.1) % [place] % (Auto) 5.9 (5.3-12.2) % Eos % (Auto) 1.0 (0.8-7.0) Baso % (Auto) 0.2 (0.1-1.2) % Neut # (Auto) 3.30 (1.78-5.38) K/mm3 Lymph # (Auto) 0.46 L (1.32-3.57) K/mm3 [place] # (Auto) 0.24 L (0.30-0.82) K/mm3 Eos # (Auto) 0.04 (0.04-0.54) K/mm3 Baso # (Auto) 0.01 (0.01-0.08) K/mm3 Manual Slide Review Abnormal smear Sodium 142 (136-145) mEq/L Potassium 3.5 (3.5-5.1) mEq/L Chloride 103 (98-107) mEq/L Carbon Dioxide 34 H (21-32) mEq/L Anion Gap 8.5 (5-15) BUN 37 H (7-18) mg/dL Creatinine 1.3 (0.7-1.3) mg/dL Est Cr Clr Drug Dosing 42.12 mL/min Estimated GFR (MDRD) 52 (>60) mL/min BUN/Creatinine Ratio 28.5 H (14-18) Glucose 118 H (83-115) mg/dL Calcium 9.2 (8.5-10.1) mg/dL Magnesium 1.7 L (1.8-2.4) mg/dl CK-MB (CK-2) 1.0 (0-3.6) ng/ml Troponin I 0.071 H* (0.00-0.056) ng/mL NT-Pro-B Natriuret Pep (0-450) pg/mL 09/01/18 Range/Units 05:20 WBC (4.23-9.07) K/mm3 RBC (4.63-6.08) M/mm3 Hgb (13.7-17.5) gm/L Hct (40.1-51.0) % MCV (79.0-92.2) fl MCH (25.7-32.2) pg MCHC (32.2-35.5) g/dl RDW Std Deviation (35.1-43.9) fL Plt Count (163-337) K/mm3 MPV (9.4-12.3) fl Neut % (Auto) (34.0-67.9) % Lymph % (Auto) (21.8-53.1) % [place] % (Auto) (5.3-12.2) % Eos % (Auto) (0.8-7.0) Baso % (Auto) (0.1-1.2) % Neut # (Auto) (1.78-5.38) K/mm3 Lymph # (Auto) (1.32-3.57) K/mm3 [place] # (Auto) (0.30-0.82) K/mm3 Eos # (Auto) (0.04-0.54) K/mm3 Baso # (Auto) (0.01-0.08) K/mm3 Manual Slide Review Sodium (136-145) mEq/L Potassium (3.5-5.1) mEq/L Chloride (98-107) mEq/L Carbon Dioxide (21-32) mEq/L Anion Gap (5-15) BUN (7-18) mg/dL Creatinine (0.7-1.3) mg/dL Est Cr Clr Drug Dosing mL/min Estimated GFR (MDRD) (>60) mL/min BUN/Creatinine Ratio (14-18) Glucose (83-115) mg/dL Calcium (8.5-10.1) mg/dL Magnesium (1.8-2.4) mg/dl CK-MB (CK-2) (0-3.6) ng/ml Troponin I (0.00-0.056) ng/mL NT-Pro-B Natriuret Pep 4027 H (0-450) pg/mL [place] Results Last 24 Hours: Microbiology 08/30/18 22:24 Aerobic Blood Culture - Preliminary Blood - Venous - Lab Draw NO GROWTH AFTER 1 DAY Anaerobic Blood Culture - Preliminary NO GROWTH AFTER 1 DAY 08/30/18 22:15 Aerobic Blood Culture - Preliminary Blood - Venous NO GROWTH AFTER 1 DAY Anaerobic Blood Culture - Preliminary NO GROWTH AFTER 1 DAY Med Orders - Current: Current Medications Acetaminophen (Tylenol) 650 mg PO Q4H PRN PRN Reason: Pain (Mild 1-3)/fever Acetaminophen (Tylenol) 650 mg PO BEDTIME [facility] Last Admin: 08/31/18 20:50 Dose: 650 mg Hydrocodone Bitart/Acetaminophen (Larimer 325-5 Mg) 1 tab PO QID [facility] Last Admin: 09/01/18 09:02 Dose: 1 tab Allopurinol (Zyloprim) 150 mg PO DAILY [facility] Last Admin: 09/01/18 08:49 Dose: 150 mg Artificial Tears (Refresh Liquigel 1%) 0 ml EYEBOTH DAILY [facility] Last Admin: 09/01/18 09:05 Dose: 1 drop Aspirin (Aspirin) 81 mg PO DAILY [facility] Last Admin: 09/01/18 08:48 Dose: 81 mg Bisacodyl (Dulcolax) 10 mg RECTAL DAILY PRN PRN Reason: Constipation Cholecalciferol (Vitamin D3) 1,000 units PO DAILY [facility] Last Admin: 09/01/18 08:44 Dose: 1,000 units Clopidogrel Bisulfate (Plavix) 75 mg PO DAILY [facility] Last Admin: 09/01/18 08:47 Dose: 75 mg Cyanocobalamin (Vitamin B12) 1,000 mcg PO DAILY [facility] Last Admin: 09/01/18 08:46 Dose: 1,000 mcg Docusate Sodium (Colace) 200 mg PO DAILY [facility] Last Admin: 09/01/18 08:36 Dose: 200 mg Duloxetine HCl (Cymbalta) 30 mg PO DAILY [facility] Last Admin: 09/01/18 08:44 Dose: 30 mg Famotidine (Pepcid) 20 mg PO Q24H [facility] Last Admin: 08/31/18 20:49 Dose: 20 mg Ferrous Sulfate (Ferrous Sulfate) 325 mg PO DAILY [facility] Last Admin: 09/01/18 08:36 Dose: 325 mg Furosemide (Lasix) 40 mg IVPUSH DAILY [facility] Last Admin: 09/01/18 09:05 Dose: 40 mg Hydralazine HCl (Apresoline) 10 mg IVPUSH Q6H PRN PRN Reason: Hypertension Magnesium Sulfate (Pharmacy To Dose - Magnesium Replacement) 0 dose .XX ASDIRECTED PRN PRN Reason: RX TO WATCH MAG Metoprolol Tartrate (Lopressor) 5 mg IVPUSH Q4H PRN PRN Reason: Tachycardia Metoprolol Tartrate (Lopressor) 25 mg PO BID [facility] Last Admin: 09/01/18 08:34 Dose: 25 mg Mirtazapine (Remeron) 45 mg PO BEDTIME [facility] Last Admin: 08/31/18 20:42 Dose: 45 mg Ondansetron HCl (Zofran) 4 mg IVPUSH Q4H PRN PRN Reason: Nausea Potassium Chloride (Pharmacy To Dose - Potassium Replacement) 0 dose .XX ASDIRECTED PRN PRN Reason: RX TO WATCH K Simvastatin (Zocor) 10 mg PO BEDTIME [facility] Last Admin: 08/31/18 20:43 Dose: 10 mg Discontinued Medications Alprazolam (Xanax) 0.5 mg PO TID [facility] Last Admin: 08/31/18 15:56 Dose: 0.5 mg Alprazolam (Xanax) 1 mg PO BEDTIME [facility] Furosemide (Lasix) 60 mg IVPUSH NOW ONE Stop: 08/30/18 23:08 Last Admin: 08/30/18 23:30 Dose: 60 mg Furosemide (Lasix) 40 mg IVPUSH ONETIME ONE Stop: 08/31/18 06:01 Last Admin: 08/31/18 06:12 Dose: 40 mg Gabapentin (Neurontin) 300 mg PO TID [facility] Last Admin: 08/31/18 15:56 Dose: 300 mg Dextrose/Sodium Chloride (Dextrose 5%-Normal Saline) 1,000 mls @ 500 mls/hr IV ASDIRECTED [facility] Last Admin: 08/30/18 22:45 Dose: 500 mls/hr Dextrose/Sodium Chloride (Dextrose 5%-Normal Saline) 1,000 mls @ 75 mls/hr IV ASDIRECTED JOLEEN Dextrose/Sodium Chloride (Dextrose 5%-Normal Saline) 1,000 mls @ 75 mls/hr IV ASDIRECTED [facility] Last Admin: 08/31/18 09:07 Dose: 75 mls/hr Magnesium Hydroxide (Milk Of Magnesia) 30 ml PO ONETIME ONE Stop: 09/01/18 11:26 Magnesium Oxide (Magnesium Oxide) 800 mg PO ONETIME ONE Stop: 09/01/18 10:01 Last Admin: 09/01/18 11:14 Dose: 800 mg Naloxone HCl (Narcan) 0.4 mg IVPUSH ONETIME ONE Stop: 08/30/18 22:39 Last Admin: 08/30/18 23:25 Dose: 0.4 mg Non-Formulary Medication (Celecoxib [Celecoxib]) 200 mg PO DAILY [facility] Last Admin: 08/31/18 11:11 Dose: Not Given Non-Formulary Medication (Doxazosin Mesylate [Cardura Xl]) 8 mg PO BEDTIME [facility] Potassium Chloride (Klor-Con M20) 20 meq PO BID [facility] Last Admin: 08/31/18 09:25 Dose: Not Given - Exam General: Alert, Oriented (comes and goes ), Cooperative, No Acute Distress HEENT: Pupils Equal, Pupils Reactive, EOMI, Mucous Membr. Moist/B[place]ard Neck: Supple, Trachea Midline Lungs: Clear to Auscultation, Normal Respiratory Effort Cardiovascular: Regular Rate, Regular Rhythm, Other (100% paced ) GI/Abdominal Exam: Normal Bowel Sounds, Soft, Non-Tender, No Organomegaly, No Distention (Male) Exam: Deferred Back Exam: Normal Inspection, Decreased Range of Motion Extremities: Normal Inspection, Non-Tender, No Pedal Edema, Normal Capillary Refill, Limited Range of Motion (2/2 pain ) Peripheral Pulses: 3+: Radial (L), Radial (R), Dorsalis Pedis (L), Dorsalis Pedis (R) Skin: Warm, Dry, Intact Neurological: No New Focal Deficit Psy/Mental Status: Alert, Normal Affect, Normal Mood - Problem List & Annotations (1) Adverse effects of medication SNOMED Code(s): 50094778 Code(s): T50.905A - ADVERSE EFFECT OF UNSP DRUG/MEDS/BIOL SUBST, INIT Status: Acute Priority: High Current Visit: Yes Qualifiers: Encounter type: initial encounter Qualified Code(s): T50.905A - Adverse effect of unspecified drugs, medicaments and biological substances, initial encounter (2) Altered level of consciousness SNOMED Code(s): 6234590 Code(s): R40.4 - TRANSIENT ALTERATION OF AWARENESS Status: Acute Priority : High Current Visit: Yes (3) Anemia SNOMED Code(s): 643237812 Code(s): D64.9 - ANEMIA, UNSPECIFIED Status: Chronic Priority: Medium Current Visit: No Qualifiers: Anemia type: iron deficiency (4) Chronic renal insufficiency, stage III (moderate) SNOMED Code(s): 683253135 Code(s): N18.3 - CHRONIC KIDNEY DISEASE, STAGE 3 (MODERATE) Status: Chronic Priority: Medium Current Visit: Yes (5) Congestive heart failure SNOMED Code(s): 98285566 Code(s): I50.9 - HEART FAILURE, UNSPECIFIED Status: Chronic Priority: Medium Current Visit: Yes Qualifiers: Heart failure type: diastolic Heart failure chronicity: chronic Qualified Code(s): I50.32 - Chronic diastolic (congestive) heart failure (6) Thrombocytopenia SNOMED Code(s): 927651842 Code(s): D69.6 - THROMBOCYTOPENIA, UNSPECIFIED Status: Chronic Priority: High Current Visit: Yes (7) Traumatic compression fracture of T12 thoracic vertebra SNOMED Code(s): 894242852 Code(s): S22.080A - WEDGE COMPRESSION FRACTURE OF T11-T12 VERTEBRA, INIT Status: Chronic Priority: Medium Current Visit: No Qualifiers: Encounter type: subsequent encounter Fracture healing: with routine healing Qualified Code(s): S22.080D - Wedge compression fracture of T11-T12 vertebra, subsequent encounter for fracture with routine healing (8) Volume depletion SNOMED Code(s): 69796445 Code(s): E86.9 - VOLUME DEPLETION, UNSPECIFIED Status: Acute Priority: High Current Visit: Yes (9) Acute renal failure SNOMED Code(s): 03050476 Code(s): N17.9 - ACUTE KIDNEY FAILURE, UNSPECIFIED Status: Acute Priority : High Current Visit: Yes Qualifiers: Acute renal failure type: unspecified Qualified Code(s): N17.9 - Acute kidney failure, unspecified (10) Anxiety SNOMED Code(s): 59975118 Code(s): F41.9 - ANXIETY DISORDER, UNSPECIFIED Status: Chronic Priority: Medium Current Visit: No (11) Coronary artery disease SNOMED Code(s): 29985667 Code(s): I25.10 - ATHSCL HEART DISEASE OF [place] CORONARY ARTERY W/O ANG PCTRS Status: Chronic Priority: Low Current Visit: No Qualifiers: Coronary Disease-Associated Artery/Lesion type: unspecified vessel or lesion type Associated angina: with stable angina (12) History of permanent cardiac pacemaker placement SNOMED Code(s): 423084526 Code(s): Z95.0 - PRESENCE OF CARDIAC PACEMAKER Status: Chronic Priority: Medium Current Visit: No (13) S/P lobectomy of lung SNOMED Code(s): 88387333816680550, 277146990, 61313896531088817 Code(s): Z90.2 - ACQUIRED ABSENCE OF LUNG [PART OF] Status: Chronic Priority: Medium Current Visit: No (14) Polypharmacy SNOMED Code(s): 114755183 Code(s): Z79.899 - OTHER HALFWAY (CURRENT) DRUG THERAPY Status: Acute Priority: High Current Visit: Yes - Problem List Review Problem List Initiated/Reviewed/Updated: Yes - My Orders Last 24 Hours: My Active Orders 08/31/18 11:30 Remove Gloria Catheter [Urinary Catheter Removal] [RC] Per Unit Routine 08/31/18 13:00 Acetaminophen/HYDROcodone [Larimer 325-5 MG] 1 tab PO QID 08/31/18 14:11 Up With Assistance [RC] ASDIRECTED 08/31/18 21:00 Acetaminophen [Tylenol] 650 mg PO BEDTIME Famotidine [Pepcid] 20 mg PO Q24H Metoprolol Tartrate [Lopressor] 25 mg PO BID Mirtazapine [Remeron] 45 mg PO BEDTIME Simvastatin [Zocor] 10 mg PO BEDTIME 09/01/18 09:00 Allopurinol [Zyloprim] 150 mg PO DAILY Furosemide [Lasix] 40 mg IVPUSH DAILY 09/01/18 Breakfast Low Sodium [Sodium Restricted Diet] [DIET] 09/02/18 05:11 BASIC METABOLIC PANEL,BMP [CHEM] AM CBC WITH AUTO DIFF [HEME] AM MAGNESIUM [CHEM] AM PRO B-TYPE NATRIUR PEPT,BNPPRO [CHEM] DAILY 09/03/18 05:11 BASIC METABOLIC PANEL,BMP [CHEM] AM CBC WITH AUTO DIFF [HEME] AM MAGNESIUM [CHEM] AM PRO B-TYPE NATRIUR PEPT,BNPPRO [CHEM] DAILY 09/04/18 05:11 BASIC METABOLIC PANEL,BMP [CHEM] AM CBC WITH AUTO DIFF [HEME] AM MAGNESIUM [CHEM] AM PRO B-TYPE NATRIUR PEPT,BNPPRO [CHEM] DAILY - Plan Plan:: I/P: Acute: Altered mental status, Resolved on floor -/2 oversedation -Patient normally alert and able to hold conversation with ease -Lethargic and unable to communicate -Pinpoint pupils noted in ED -On multiple pain and anti-anxiety medications - has kyphoplasty scheduled 08/15 compression fracture -Head CT in ED negative for acute changes -UA negative, CXR negative for acute changes. -Oxygen saturations remained high -Narcan 0.4mg given with good results -Now more alert -Jigar consult to review medications -> discontinued several medications -Resume fentanyl patch at 50mcg Kidney failure, Improving -Acute on chronic -Baseline GFR appears to be in the upper 40s and low 50s -BUN 55-->46-->37 -Creatinine 1.9-->1.6-->1.3 -eGFR 34-->41-->52 -IV fluids as ordered Elevated BNP -History of HTN but no heart failure noted in prior history -1+ pitting edema noted in ankles in ED, trace on floor -pro-BNP 6673-->4991-->4027 -CXR in ED shows increased lung markings - suspect chronic redistribution from pneumonectomy -60mg lasix given in ED -40mg lasix given today on floor -> continue daily -Gloria placed in ED for I&O monitoring -> discontinue -Continue diuretic as ordered -Monitor -Echo obtained today Thrombocytopenia, sable -Acute on chronic -Platelets 48-->57-->57 -61-92 on prior visits -Avoid antiplatelet medications is possible -Monitor Polypharmacy -Multiple pain and anti-anxiety medications -Dr. Kimball reviewed medications and discontinued several -Came into ED with oversedation -> reversed with narcan -Continue to find balance with pain and anxiety -Has lumbar spine compression fracture which will be fixed surgically by Dr. 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 Talbert Anxiety Depression Anemia Colon cancer Prostate cancer Plan: Admit to medical floor on telemetry Other orders as indicated above Home medications as ordered PT/OT - needs to wear brace when ambulating CM/SW for discharge planning Routine AM labs DVT prophylaxis: SCDs; Pharmacological contraindicated 2/2 low platelets Code status: DNR; PCP: Dr. Ervin
[2018-09-01] MEDS ORDERED: fentaNYL 50 MCG/HR Transdermal Patch TRDERM SCH (14:00)
[2018-09-01] MEDS: Ondansetron 4 MG/2 ML SDV IVPUSH PRN (14:42)
[2018-09-01] MEDS ORDERED: Scopolamine 1.5 MG Transdermal Patch TOP ONE (16:32)
--- NOTE | 2018-09-01 18:37 | CONS ---
CONSULTING PHYSICIAN: Renato Kimball MD DATE OF CONSULTATION: 08/31/2018 This is a 60-minute inpatient telemedicine event. Site where the services are provided are [facility] in [place], [place]. Site where the services are provided from our offices in [facility]. Length of time for this 60-minute inpatient telemedicine event is 60 minutes. IDENTIFICATION: The patient is an 88-year-old male who was admitted to the Inpatient Med/Surg Unit at [facility] on 08/30/2018. He has seen for psychiatric consultation per the request of staff attending Dr. Watt and his treatment team. CHIEF COMPLAINT: "I got a cracked vertebrae." HISTORY OF PRESENT ILLNESS: The patient is an 88-year-old male who is admitted from the medical ER at [facility] secondary to possible over-sedation caused by polypharmacy. Evidently, the patient lives in a local detention residence. He has been struggling with "a little bit of pain" and he has been getting a host of medications to help control the pain. Also complicating his clinical situations, he has a history of anxiety and depression, although the patient is denying any problems with anxiety or depression at this point in time. It appears that he had gotten over-sedated and even obtunded at his place of residence. He was brought to the ER for evaluation and admitted for management of being over-sedated with a combination of narcotics and benzodiazepines as well as his regular antidepressant regimen. Staff is requesting the consult to assess his medications and assess the patient for the need for anxiety medications. The patient again is denying any anxiety. He states his mood is "alright" at this point in time aside from the physical complaints he is struggling with. He is alert and oriented x2 to person and place, but not to date or time. He is not reporting any suicidal or homicidal ideation or any psychotic, delusional, or paranoid symptoms. He does not feel that his antidepressant medications need adjustment at this point in time. MEDICATIONS: At time of presentation, 1. Remeron 45 mg at bedtime. 2. Cymbalta 30 mg q.a.m. 3. Xanax 0.5 mg t.i.d., 1 mg every afternoon, and 1 mg at bedtime, all scheduled. 4. Celebrex 200 mg daily. 5. Regular Tylenol 650 mg at bedtime and 225 mg t.i.d. 6. Neurontin 300 mg t.i.d. 7. Tylenol/hydrocodone tabs 1 tab q.i.d. and 2 tabs at bedtime. 8. Fentanyl 75 mcg patch. ALLERGIES: The patient is allergic to prednisone. PAST MEDICAL HISTORY: The patient has a history of fractured vertebra. REVIEW OF SYSTEMS: Aside from musculoskeletal and neurologic, all other major organ systems are negative at this point in time for acute difficulties or complications. FAMILY PSYCHIATRIC AND CD HISTORY: None reported. PAST PSYCHIATRIC AND CD HISTORY: The patient is not reporting any past psychiatric history, but he is acknowledging that he has a history of depression and anxiety, but he feels that these conditions are under control at this point in time. Primary outpatient MD is Dr. Ervin. Primary outpatient psychiatrist, Dr. Ren. SOCIAL HISTORY: The patient is reporting he is from [facility]. He is currently living in a detention residence. He is . He has 3 children, 3 grand kids, and 1 great grandchild. MENTAL STATUS EXAM: The patient is an 88-year-old white male, in no apparent distress. Speech is of increased latency of response, shortened duration of utterance. Psychomotor activity is within normal limits. There are no abnormal motor movements or tics observed. Gait and station are not observed. This patient is lying in bed for the purposes of the telemedicine consult. The patient is cognitively oriented x2 to person and place, but not to date. Mood is "alright." Affect is cooperative overall for the purposes of the inpatient telemedicine consult. There is no behavioral or stated evidence of acute suicidal or homicidal ideation or acute psychotic, delusional, or paranoid symptoms. Thought processes are slow but organized. There are no acute manic symptoms or loose associations evident. Judgment and insight appear somewhat impaired due to his alteration in cognition. Motivation for help appears fair to good. VITALS: 113/66, 60, 20, and 98.8 degrees. IMPRESSION: [place] I: 1. Depression, not otherwise specified, F32.9. 2. Anxiety disorder, not otherwise specified, F41.9. 3. Rule out major depressive disorder. [place] II: None. [place] III: 1. History of fractured vertebrae. 2. Excessive sedation, most likely secondary to polypharmacy. [place] IV: Severe. [place] V: 55-60. PLAN: 1. Recommend discontinuing the patient's Xanax. 2. Recommend discontinuing the patient's Neurontin. 3. Continue Cymbalta 30 mg q.a.m. 4. Continue Remeron 45 mg at bedtime. 5. Other medications as dosed and prescribed by the patient's primary inpatient medical treatment team. 6. We will continue to follow up with the patient on an as-needed basis while he remains on the Inpatient Med/Surg Unit [facility], [place]. 7. We will follow up with the patient sooner if any complications in the interim. 8. Crisis plan is in place. JOHN /[id number]
[2018-09-01] MEDS: Mirtazapine 15 MG Tab PO SCH (22:01)
[2018-09-01] MEDS: Acetaminophen 325 MG Tab PO SCH (22:02)
[2018-09-01] MEDS: Simvastatin 10 MG Tab PO SCH (22:03)
[2018-09-01] MEDS: Famotidine 20 MG Tab PO SCH (22:04)
--- NOTE | 2018-09-02 08:09 | PCM.PN ---
- General Info Date of Service: 09/02/18 Admission Dx/Problem (Free Text): Admission Diagnosis/Problem Admission Diagnosis/Problem Altered level of consciousness Subjective Update: In to see Ehsan. He is a bit more altered today. Questionable withdrawals from prior meds. Dr. Kimball was contacted by nursing after her was a bit more anxious today and reported the amount of medications he was on was a safety issue and should not be restarted. He has not been very anxious when staff have been in the room but family reports he has been more anxious to them. Otherwise labs have been stable. BODYBUILDER saw him today and recommended regular diet, thin liquids, no straws, and meds with pudding. Because of his mental status changes CT scan of his head was obtained and was negative. Likely discharge tomorrow. Functional Status: Reports: Pain Controlled, Tolerating Diet, New Symptoms ( somewhat more altered ). Denies: Ambulating - Review of Systems General: Reports: Weakness, Fatigue, Malaise. Denies: Fever, Chills HEENT: Reports: No Symptoms. Denies: Headaches, Sore Throat Pulmonary: Reports: No Symptoms. Denies: Shortness of Breath, Cough, Wheezing Cardiovascular: Reports: No Symptoms. Denies: Chest Pain, Palpitations, Dyspnea on Exertion, Edema Gastrointestinal: Reports: No Symptoms. Denies: Abdominal Pain, Constipation, Diarrhea, Nausea, Vomiting Genitourinary: Reports: Incontinence Musculoskeletal: Reports: Back Pain (chronic ), Joint Pain (left hip pain - chronic ) Skin: Reports: No Symptoms Neurological: Reports: Confusion, Trouble Speaking (more aphagia today ), Difficulty Walking, Weakness, Gait Disturbance. Denies: Headache, Numbness, Seizure, Tingling Psychiatric: Reports: No Symptoms - Patient Data Vitals - Most Recent: Last Vital Signs Temp 99.0 F 09/02/18 03:18 Pulse 65 09/02/18 03:18 Resp 20 09/02/18 03:18 BP 157/76 H 09/02/18 03:18 Pulse Ox 93 L 09/02/18 05:20 Weight - Most Recent: 193 lb 12.8 oz I&O - Last 24 Hours: Intake & Output 09/01/18 09/02/18 09/02/18 22:59 06:59 14:59 Intake Total 1280 600 Balance 1280 600 Lab Results Last 24 Hours: Laboratory Results - last 24 hr 02/20/19 02/20/19 02/20/19 Range/Units 06:18 06:18 06:18 WBC 4.89 (4.23-9.07) K/mm3 RBC 4.23 L (4.63-6.08) M/mm3 Hgb 12.7 L (13.7-17.5) gm/L Hct 40.6 (40.1-51.0) % MCV 96.0 H (79.0-92.2) fl MCH 30.0 (25.7-32.2) pg MCHC 31.3 L (32.2-35.5) g/dl RDW Std Deviation 47.1 H (35.1-43.9) fL Plt Count 64 L (163-337) K/mm3 MPV 13.2 H (9.4-12.3) fl Neut % (Auto) 82.2 H (34.0-67.9) % Lymph % (Auto) 10.2 L (21.8-53.1) % [place] % (Auto) 7.4 (5.3-12.2) % Eos % (Auto) 0 L (0.8-7.0) Baso % (Auto) 0.0 L (0.1-1.2) % Neut # (Auto) 4.02 (1.78-5.38) K/mm3 Lymph # (Auto) 0.50 L (1.32-3.57) K/mm3 [place] # (Auto) 0.36 (0.30-0.82) K/mm3 Eos # (Auto) 0.00 L (0.04-0.54) K/mm3 Baso # (Auto) 0.00 L (0.01-0.08) K/mm3 Sodium 141 (136-145) mEq/L Potassium 3.0 L (3.5-5.1) mEq/L Chloride 99 (98-107) mEq/L Carbon Dioxide 32 (21-32) mEq/L Anion Gap 13.0 (5-15) BUN 36 H (7-18) mg/dL Creatinine 1.3 (0.7-1.3) mg/dL Est Cr Clr Drug Dosing 42.22 mL/min Estimated GFR (MDRD) 52 (>60) mL/min BUN/Creatinine Ratio 27.7 H (14-18) Glucose 123 H (83-115) mg/dL Calcium 9.4 (8.5-10.1) mg/dL Magnesium 1.7 L (1.8-2.4) mg/dl NT-Pro-B Natriuret Pep 9708 H (0-450) pg/mL [place] Results Last 24 Hours: Microbiology 08/30/18 22:24 Aerobic Blood Culture - Preliminary Blood - Venous - Lab Draw NO GROWTH AFTER 2 DAYS Anaerobic Blood Culture - Preliminary NO GROWTH AFTER 2 DAYS 08/30/18 22:15 Aerobic Blood Culture - Preliminary Blood - Venous NO GROWTH AFTER 2 DAYS Anaerobic Blood Culture - Preliminary NO GROWTH AFTER 2 DAYS Med Orders - Current: Current Medications Acetaminophen (Tylenol) 650 mg PO Q4H PRN PRN Reason: Pain (Mild 1-3)/fever Acetaminophen (Tylenol) 650 mg PO BEDTIME [facility] Last Admin: 09/01/18 22:02 Dose: 650 mg Hydrocodone Bitart/Acetaminophen ([place] 325-5 Mg) 1 tab PO QID [facility] Last Admin: 09/01/18 22:01 Dose: 1 tab Allopurinol (Zyloprim) 150 mg PO DAILY [facility] Last Admin: 09/01/18 08:49 Dose: 150 mg Artificial Tears (Refresh Liquigel 1%) 0 ml EYEBOTH DAILY [facility] Last Admin: 09/01/18 09:05 Dose: 1 drop Aspirin (Aspirin) 81 mg PO DAILY [facility] Last Admin: 09/01/18 08:48 Dose: 81 mg Bisacodyl (Dulcolax) 10 mg RECTAL DAILY PRN PRN Reason: Constipation Cholecalciferol (Vitamin D3) 1,000 units PO DAILY [facility] Last Admin: 09/01/18 08:44 Dose: 1,000 units Clopidogrel Bisulfate (Plavix) 75 mg PO DAILY [facility] Last Admin: 09/01/18 08:47 Dose: 75 mg Cyanocobalamin (Vitamin B12) 1,000 mcg PO DAILY [facility] Last Admin: 09/01/18 08:46 Dose: 1,000 mcg Docusate Sodium (Colace) 200 mg PO DAILY [facility] Last Admin: 09/01/18 08:36 Dose: 200 mg Duloxetine HCl (Cymbalta) 30 mg PO DAILY [facility] Last Admin: 09/01/18 08:44 Dose: 30 mg Famotidine (Pepcid) 20 mg PO Q24H [facility] Last Admin: 09/01/18 22:04 Dose: 20 mg Fentanyl (Duragesic) 50 mcg TRDERM Q72H [facility] Last Admin: 09/01/18 14:42 Dose: 50 mcg Ferrous Sulfate (Ferrous Sulfate) 325 mg PO DAILY [facility] Last Admin: 09/01/18 08:36 Dose: 325 mg Furosemide (Lasix) 40 mg IVPUSH DAILY [facility] Last Admin: 09/01/18 09:05 Dose: 40 mg Hydralazine HCl (Apresoline) 10 mg IVPUSH Q6H PRN PRN Reason: Hypertension Magnesium Sulfate (Pharmacy To Dose - Magnesium Replacement) 0 dose .XX ASDIRECTED PRN PRN Reason: RX TO WATCH MAG Metoprolol Tartrate (Lopressor) 5 mg IVPUSH Q4H PRN PRN Reason: Tachycardia Metoprolol Tartrate (Lopressor) 25 mg PO BID [facility] Last Admin: 09/01/18 22:03 Dose: 25 mg Mirtazapine (Remeron) 45 mg PO BEDTIME [facility] Last Admin: 09/01/18 22:01 Dose: 45 mg Miscellaneous Information (Remove Patch) 0 ea TRDERM Q72H [facility] Ondansetron HCl (Zofran) 4 mg IVPUSH Q4H PRN PRN Reason: Nausea Last Admin: 09/01/18 14:42 Dose: 4 mg Potassium Chloride (Pharmacy To Dose - Potassium Replacement) 0 dose .XX ASDIRECTED PRN PRN Reason: RX TO WATCH K Simethicone (Simethicone) 80 mg PO ASDIRECTED PRN PRN Reason: Gas, Bloating Simvastatin (Zocor) 10 mg PO BEDTIME [facility] Last Admin: 09/01/18 22:03 Dose: 10 mg Discontinued Medications Alprazolam (Xanax) 0.5 mg PO TID [facility] Last Admin: 08/31/18 15:56 Dose: 0.5 mg Alprazolam (Xanax) 1 mg PO BEDTIME [facility] Furosemide (Lasix) 60 mg IVPUSH NOW ONE Stop: 08/30/18 23:08 Last Admin: 08/30/18 23:30 Dose: 60 mg Furosemide (Lasix) 40 mg IVPUSH ONETIME ONE Stop: 08/31/18 06:01 Last Admin: 08/31/18 06:12 Dose: 40 mg Gabapentin (Neurontin) 300 mg PO TID [facility] Last Admin: 08/31/18 15:56 Dose: 300 mg Dextrose/Sodium Chloride (Dextrose 5%-Normal Saline) 1,000 mls @ 500 mls/hr IV ASDIRECTED [facility] Last Admin: 08/30/18 22:45 Dose: 500 mls/hr Dextrose/Sodium Chloride (Dextrose 5%-Normal Saline) 1,000 mls @ 75 mls/hr IV ASDIRECTED [facility] Dextrose/Sodium Chloride (Dextrose 5%-Normal Saline) 1,000 mls @ 75 mls/hr IV ASDIRECTED [facility] Last Admin: 08/31/18 09:07 Dose: 75 mls/hr Magnesium Hydroxide (Milk Of Magnesia) 30 ml PO ONETIME ONE Stop: 09/01/18 11:26 Last Admin: 09/01/18 12:22 Dose: Not Given Magnesium Oxide (Magnesium Oxide) 800 mg PO ONETIME ONE Stop: 09/01/18 10:01 Last Admin: 09/01/18 11:14 Dose: 800 mg Naloxone HCl (Narcan) 0.4 mg IVPUSH ONETIME ONE Stop: 08/30/18 22:39 Last Admin: 08/30/18 23:25 Dose: 0.4 mg Non-Formulary Medication (Celecoxib [Celecoxib]) 200 mg PO DAILY [facility] Last Admin: 08/31/18 11:11 Dose: Not Given Non-Formulary Medication (Doxazosin Mesylate [Cardura Xl]) 8 mg PO BEDTIME [facility] Potassium Chloride (Klor-Con M20) 20 meq PO BID [facility] Last Admin: 08/31/18 09:25 Dose: Not Given Scopolamine (Transderm-Scop) 1.5 mg TOP ONETIME ONE Stop: 09/01/18 16:33 Last Admin: 09/01/18 17:59 Dose: 1.5 mg - Exam Quality Assessment: DVT Prophylaxis General: Alert, Cooperative, No Acute Distress. No: Oriented HEENT: Pupils Equal, Pupils Reactive, EOMI, Mucous Membr. Moist/[place] Neck: Supple, Trachea Midline, No JVD Lungs: Clear to Auscultation, Normal Respiratory Effort Cardiovascular: Regular Rate, Regular Rhythm GI/Abdominal Exam: Normal Bowel Sounds, Soft, Non-Tender, No Distention, No Abnormal Bruit (Male) Exam: Deferred Back Exam: Normal Inspection, Full Range of Motion Extremities: Normal Inspection, Normal Range of Motion, Non-Tender, No Pedal Edema, Normal Capillary Refill Peripheral Pulses: 3+: Radial (L), Radial (R), Dorsalis Pedis (L), Dorsalis Pedis (R) Skin: Warm, Dry, Intact Neurological: No New Focal Deficit Psy/Mental Status: Alert, Anxious, Withdrawal Symptoms (questionable ) - Problem List & Annotations (1) Adverse effects of medication SNOMED Code(s): 22903785 Code(s): T50.905A - ADVERSE EFFECT OF UNSP DRUG/MEDS/BIOL SUBST, INIT Status: Acute Priority: High Current Visit: Yes Qualifiers: Encounter type: initial encounter Qualified Code(s): T50.905A - Adverse effect of unspecified drugs, medicaments and biological substances, initial encounter (2) Altered level of consciousness SNOMED Code(s): 7945869 Code(s): R40.4 - TRANSIENT ALTERATION OF AWARENESS Status: Acute Priority : High Current Visit: Yes (3) Anemia SNOMED Code(s): 152540897 Code(s): D64.9 - ANEMIA, UNSPECIFIED Status: Chronic Priority: Medium Current Visit: No Qualifiers: Anemia type: iron deficiency (4) Chronic renal insufficiency, stage III (moderate) SNOMED Code(s): 787719650 Code(s): N18.3 - CHRONIC KIDNEY DISEASE, STAGE 3 (MODERATE) Status: Chronic Priority: Medium Current Visit: Yes (5) Congestive heart failure SNOMED Code(s): 04139089 Code(s): I50.9 - HEART FAILURE, UNSPECIFIED Status: Chronic Priority: Medium Current Visit: Yes Qualifiers: Heart failure type: diastolic Heart failure chronicity: chronic Qualified Code(s): I50.32 - Chronic diastolic (congestive) heart failure (6) Thrombocytopenia SNOMED Code(s): 891808046 Code(s): D69.6 - THROMBOCYTOPENIA, UNSPECIFIED Status: Chronic Priority: High Current Visit: Yes (7) Traumatic compression fracture of T12 thoracic vertebra SNOMED Code(s): 365318375 Code(s): S22.080A - WEDGE COMPRESSION FRACTURE OF T11-T12 VERTEBRA, INIT Status: Chronic Priority: Medium Current Visit: No Qualifiers: Encounter type: subsequent encounter Fracture healing: with routine healing Qualified Code(s): S22.080D - Wedge compression fracture of T11-T12 vertebra, subsequent encounter for fracture with routine healing (8) Volume depletion SNOMED Code(s): 31606596 Code(s): E86.9 - VOLUME DEPLETION, UNSPECIFIED Status: Acute Priority: High Current Visit: Yes (9) Acute renal failure SNOMED Code(s): 96531998 Code(s): N17.9 - ACUTE KIDNEY FAILURE, UNSPECIFIED Status: Acute Priority : High Current Visit: Yes Qualifiers: Acute renal failure type: unspecified Qualified Code(s): N17.9 - Acute kidney failure, unspecified (10) Anxiety SNOMED Code(s): 47608522 Code(s): F41.9 - ANXIETY DISORDER, UNSPECIFIED Status: Chronic Priority: Medium Current Visit: No (11) Coronary artery disease SNOMED Code(s): 92532513 Code(s): I25.10 - ATHSCL HEART DISEASE OF [place] CORONARY ARTERY W/O ANG PCTRS Status: Chronic Priority: Low Current Visit: No Qualifiers: Coronary Disease-Associated Artery/Lesion type: unspecified vessel or lesion type Associated angina: with stable angina (12) History of permanent cardiac pacemaker placement SNOMED Code(s): 839732966 Code(s): Z95.0 - PRESENCE OF CARDIAC PACEMAKER Status: Chronic Priority: Medium Current Visit: No (13) S/P lobectomy of lung SNOMED Code(s): 51241953897488694, 750379330, 59329256051528615 Code(s): Z90.2 - ACQUIRED ABSENCE OF LUNG [PART OF] Status: Chronic Priority: Medium Current Visit: No (14) Polypharmacy SNOMED Code(s): 168191105 Code(s): Z79.899 - OTHER USP (CURRENT) DRUG THERAPY Status: Acute Priority: High Current Visit: Yes - Problem List Review Problem List Initiated/Reviewed/Updated: Yes - My Orders Last 24 Hours: My Active Orders 09/01/18 09:00 Allopurinol [Zyloprim] 150 mg PO DAILY Furosemide [Lasix] 40 mg IVPUSH DAILY 09/01/18 14:00 fentaNYL [Duragesic] 50 mcg TRDERM Q72H 09/01/18 15:35 Consult to Speech Language Pathology [BODYBUILDER Evaluation and Treatment] [CONS] Routine 09/01/18 19:06 Simethicone 80 mg PO ASDIRECTED PRN 09/02/18 06:18 CBC WITH AUTO DIFF [HEME] AM 09/02/18 Dinner Soft Diet [DIET] 09/03/18 05:11 BASIC METABOLIC PANEL,BMP [CHEM] AM CBC WITH AUTO DIFF [HEME] AM MAGNESIUM [CHEM] AM PRO B-TYPE NATRIUR PEPT,BNPPRO [CHEM] DAILY 09/04/18 05:11 BASIC METABOLIC PANEL,BMP [CHEM] AM CBC WITH AUTO DIFF [HEME] AM MAGNESIUM [CHEM] AM PRO B-TYPE NATRIUR PEPT,BNPPRO [CHEM] DAILY - Plan Plan:: I/P: Acute: Altered mental status -> worse today -2/2 oversedation initially, questionable withdrawals now -Patient normally alert and able to hold conversation with ease -Lethargic and unable to communicate -Pinpoint pupils noted in ED -On multiple pain and anti-anxiety medications - has kyphoplasty scheduled 2/ 2 compression fracture -Head CT in ED negative for acute changes -UA negative, CXR negative for acute changes. -Oxygen saturations remained high -Narcan 0.4mg given with good results -Now more alert -Jigar consult to review medications -> discontinued several medications -Resume fentanyl patch at 50mcg -Repeat head CT negative for acute Kidney failure, stable to improving -Acute on chronic -Baseline GFR appears to be in the upper 40s and low 50s -BUN 55-->46-->37-->36 -Creatinine 1.9-->1.6-->1.3-->1.3 -eGFR 34-->41-->52-->52 -IV fluids as ordered Elevated BNP -History of HTN but no heart failure noted in prior history -1+ pitting edema noted in ankles in ED, trace on floor -pro-BNP 6673-->4991-->4027-->9708 -CXR in ED shows increased lung markings - suspect chronic redistribution from pneumonectomy -60mg lasix given in ED -40mg lasix given today on floor -> continue daily -Gloria placed in ED for I&O monitoring -> discontinue -Continue diuretic as ordered -Monitor -Echo obtained today Thrombocytopenia, sable to improving -Acute on chronic -Platelets 48-->57-->57-->64 -61-92 on prior visits -Avoid antiplatelet medications is possible -Monitor Polypharmacy -Multiple pain and anti-anxiety medications -Dr. Kimball reviewed medications and discontinued several -Came into ED with oversedation -> reversed with narcan -Continue to find balance with pain and anxiety -Has lumbar spine compression fracture which will be fixed surgically by Dr. 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 Talbert Anxiety Depression Anemia Colon cancer Prostate cancer Plan: Admit to medical floor on telemetry Other orders as indicated above Home medications as ordered PT/OT - needs to wear brace when ambulating CM/SW for discharge planning Routine AM labs DVT prophylaxis: SCDs; Pharmacological contraindicated 2/2 low platelets Will need narcan at discharge Code status: DNR; PCP: Dr. Ervin
[2018-09-02] MEDS: Furosemide 40 MG/4 ML VIAL IVPUSH SCH (09:14)
[2018-09-02] MEDS: Allopurinol 300 MG Tab PO SCH (09:19)
[2018-09-02] MEDS: Ferrous Sulfate 325 MG Tab PO SCH (09:20)
[2018-09-02] MEDS: Cyanocobalamin (Vitamin B12) 1,000 MCG Tab PO SCH (09:20)
[2018-09-02] MEDS: Acetaminophen/HYDROcodone 325-5 MG Tab PO SCH ×4 (09:21→21:05)
[2018-09-02] MEDS: Metoprolol Tartrate 25 MG Tab PO SCH ×2 (09:23→21:06)
[2018-09-02] MEDS: DULoxetine 30 MG Cap PO SCH (09:24)
[2018-09-02] MEDS: Docusate Sodium 100 MG Cap PO SCH (09:25)
[2018-09-02] MEDS: Clopidogrel 75 MG Tab PO SCH (09:26)
[2018-09-02] MEDS: Cholecalciferol (Vitamin D3) 1,000 Unit Tab PO SCH (09:27)
[2018-09-02] MEDS: Aspirin 81 MG Tab.Chew PO SCH (09:27)
[2018-09-02] MEDS: Carboxymethylcellulose Sodium 1% Ophth Gel 15 ML Bottle EYEBOTH SCH (09:29)
[2018-09-02] MEDS: Simethicone 80 MG Tab.Chew PO PRN (09:44)
[2018-09-02] MEDS: Ondansetron 4 MG/2 ML SDV IVPUSH PRN ×2 (10:49→21:19)
[2018-09-02] MEDS ORDERED: Magnesium Oxide 400 MG Tab PO ONE ×2 (12:30→18:00)
[2018-09-02] MEDS ORDERED: Potassium Chloride 20 MEQ Tab.ER PO ONE ×2 (12:30→18:00)
--- NOTE | 2018-09-02 16:15 | CT ---
Head CT Technique: Multiple axial sections of the brain were obtained. Intravenous contrast was not utilized. Comparison: Prior head CT study of 08/30/18. Findings: Ventricles along with basal cisterns and sulci over convexities are moderately prominent. Mild diminished density is noted within the periventricular white matter compatible with small vessel ischemic demyelination change. Several old lacunar infarcts are noted within the basal ganglia. No other abnormal parenchymal densities are seen. No evidence of intracranial hemorrhage. No midline shift or mass effect is seen. Atherosclerotic change is noted within the carotid siphon. Bone window settings were reviewed which shows the visualized sinuses to appear clear. No acute calvarial abnormality is seen. Impression: 1. Senescent change as noted above. Nothing acute is seen. Diagnostic code #2
[2018-09-02] MEDS ORDERED: ALPRAZolam 1 MG Tab PO SCH (21:00)
[2018-09-02] MEDS: Acetaminophen 325 MG Tab PO SCH (21:04)
[2018-09-02] MEDS: Simvastatin 10 MG Tab PO SCH (21:05)
[2018-09-02] MEDS: Famotidine 20 MG Tab PO SCH (21:05)
[2018-09-02] MEDS: Mirtazapine 15 MG Tab PO SCH (21:09)
[2018-09-03] MEDS: Ondansetron 4 MG/2 ML SDV IVPUSH PRN (06:53)
[2018-09-03 08:44] VITALS: BP 145/87
[2018-09-03] MEDS: Cyanocobalamin (Vitamin B12) 1,000 MCG Tab PO SCH (08:44)
[2018-09-03] MEDS: Allopurinol 300 MG Tab PO SCH (08:45)
[2018-09-03] MEDS: Ferrous Sulfate 325 MG Tab PO SCH (08:46)
[2018-09-03] MEDS: Acetaminophen/HYDROcodone 325-5 MG Tab PO SCH ×2 (08:46→12:45)
[2018-09-03] MEDS: Docusate Sodium 100 MG Cap PO SCH (08:47)
[2018-09-03] MEDS: Aspirin 81 MG Tab.Chew PO SCH (08:47)
[2018-09-03] MEDS: Cholecalciferol (Vitamin D3) 1,000 Unit Tab PO SCH (08:47)
[2018-09-03] MEDS: Metoprolol Tartrate 25 MG Tab PO SCH (08:48)
[2018-09-03] MEDS: Clopidogrel 75 MG Tab PO SCH (08:48)
[2018-09-03] MEDS: DULoxetine 30 MG Cap PO SCH (08:48)
[2018-09-03] MEDS: Carboxymethylcellulose Sodium 1% Ophth Gel 15 ML Bottle EYEBOTH SCH (08:49)
[2018-09-03] MEDS: Furosemide 40 MG/4 ML VIAL IVPUSH SCH (09:49)
[2018-09-03] MEDS ORDERED: Magnesium Oxide 400 MG Tab PO ONE (12:00)
[2018-09-03] MEDS ORDERED: Potassium Chloride 20 MEQ Tab.ER PO ONE (12:00)
[2018-09-03] MEDS: Simethicone 80 MG Tab.Chew PO PRN (12:56)
--- NOTE | 2018-09-03 14:24 | PCM.SN ---
- Free Text/Narrative Note: Had a 2 way conference call with his daughter Shirley. Warren Lakesha and Myself expressed our concerns regarding the opioid/benzo combinations and the reason why he came in to the hospital to begin with i.e. narcotic overdose. We informed her, we are uncomfortable sending him back with the same regimen he was on at the [facility] but his family can choose to keep it when he gets there. However we told Shirley, her dad will be discharged with naloxone (reversal agent ) and we will call his PCP and to relay our discharge care plan and recommendations. She says, she will call her siblings and have a discussions about it. Additionally, I reached out to Dr. Ervin, PCP, and discussed discharge care plan with him as well. Specifically told him patient was admitted due to narcotic overdose and recommended against going back to his [facility] routine medications. However it'll be all depends on his family's decision whether to go by our recommendations or not. We made him aware, Ehsan is very high risk polypharmacy patient.
--- NOTE | 2018-09-03 14:57 | PCM.DCSUM1 ---
Discharge Summary - Hospital Course HPI Initial Comments: Ehsan Lama is a 88 yo male who presents to our ED yesterday evening () via [facility] from [facility]. Patient reportedly became more lethargic over the past 48 hours. He is usually alert and able to converse easily with and family. He does have a 75 g fentanyl patch on his right upper chest which was changed in the [facility] earlier in the day. His oxygen saturations were noted to be 9395% on room air and he was afebrile , actually appearing cool to the touch. He reportedly recently fell with compression fractures to his lower back and has a kyphoplasty booked for next week. This is why he is on the fentanyl patch. ED provider reviewed [facility] med list and it was also noted he received 2 Glasgow tablets of 7.5/325 mg earlier in the evening. He is also on alprazolam 0.5 mg every 4 hours and Remeron 30 mg in the evening. In the inial exam he is noted to have pinpoint pupils which are fixed. Oxygen saturation was remained in the high 90s. It is reported that his phenyl patch has not been changed in dosage. He is also noted to be on gabapentin another set sedated medications. He's recently had no fever or chills or cough. In the ED temperature 36.4C. Pulse 75. Respirations 17. Blood pressure 105/ 63. Pulse ox 99%. 12-lead EKG is obtained showing 100% ventricular paced rhythm at 65 beats per minutes. Labs are obtained: WBC is actually low at 2.62. Hemoglobin low at 10.9. Hematocrit low at 37.4. He is macrocytic. Platelet are very low at 48,000. Neutrophils are normal at 52%. PT is 11.5. INR 1.06. APTT 28. Sodium was 142. Potassium is high at 5.5. Chloride is high at 108. Carbon dioxide high at 34. Anion gap was 5.5. BUN is 55. Creatinine elevated at 1.9. EGFR 34. Glucose is 106. Calcium 8.6. Magnesium 2.0. Total bilirubin 0.5. AST 1718, ALT 22, alkaline phosphatase 88. CK-MB is 1.1. Troponin 0.082. CRP is less than 0.2. Protein is 6.1. ESR is 10. ProBNP is 6673. Lactic acid 0.5. He is given 60 mg IV push of Lasix and started on D5NS at 75 mils an hour. He is also given a half liter fluid bolus. Due to the suspected oversedation he is given 0.4 mg Narcan. UA is negative. Bear hugger is applied to warm him. Sargeant is obtained showing complete white out of the right lung compatible with complete pneumectomy in the past. Heart is shifted to the right and appears enlarged. Diffuse vascular congestion is also noted. Formal read is pending. CT scan of the head is obtained and it does does not show any midline shift or intracranial hemorrhage. Formal read is pending. Gloria catheter is then placed. He responded to the Narcan. He is shaky, opens both eyes, and does try to speak a little bit. Blood cultures were also obtained. He carries a history of: CAD, HLD, hypertension, pacemaker, stents, malignant pulmonary neoplasm, dyspnea, right sided pneumonectomy, GERD, BPH, history of colon cancer, urinary retention, arthritis, chronic back pain, degenerative disc disease, osteopenia, prior lumbar fusion at L5-S1, compression fracture of thoracic 12 vertebral body, anxiety, depression, hypokalemia, prostate cancer. He subsequently admitted to the medical floor on telemetry. He is a DNR. PCP is Dr. Ervin. Diagnosis: Stroke: No - Discharge Data Discharge Date: 09/03/18 (Admit date: 08/31/18) Discharge Disposition: DC/Tfer to SNF 03 Condition: Good - Discharge Diagnosis/Problem(s) (1) Opiate or related narcotic overdose SNOMED Code(s): 294631379 ICD Code: T40.601A - POISONING BY UNSP NARCOTICS, ACCIDENTAL, INIT Status: Acute Priority: High Qualifiers: Encounter type: initial encounter Injury intent: accidental or unintentional Qualified Code(s): T40.601A - Poisoning by unspecified narcotics , accidental (unintentional), initial encounter (2) Adverse effects of medication SNOMED Code(s): 00299704 ICD Code: T50.905A - ADVERSE EFFECT OF UNSP DRUG/MEDS/BIOL SUBST, INIT Status: Acute Priority: High Qualifiers: Encounter type: initial encounter Qualified Code(s): T50.905A - Adverse effect of unspecified drugs, medicaments and biological substances, initial encounter (3) Altered level of consciousness SNOMED Code(s): 3970461 ICD Code: R40.4 - TRANSIENT ALTERATION OF AWARENESS Status: Acute Priority: High (4) Anxiety SNOMED Code(s): 95595932 ICD Code: F41.9 - ANXIETY DISORDER, UNSPECIFIED Status: Acute Priority: High (5) Anemia SNOMED Code(s): 654002846 ICD Code: D64.9 - ANEMIA, UNSPECIFIED Status: Chronic Priority: Medium Qualifiers: Anemia type: iron deficiency (6) Chronic renal insufficiency, stage III (moderate) SNOMED Code(s): 054523440 ICD Code: N18.3 - CHRONIC KIDNEY DISEASE, STAGE 3 (MODERATE) Status: Chronic Priority: Medium (7) Congestive heart failure SNOMED Code(s): 20544490 ICD Code: I50.9 - HEART FAILURE, UNSPECIFIED Status: Chronic Priority: Medium Qualifiers: Heart failure type: diastolic Heart failure chronicity: chronic Qualified Code(s): I50.32 - Chronic diastolic (congestive) heart failure (8) Thrombocytopenia SNOMED Code(s): 966970413 ICD Code: D69.6 - THROMBOCYTOPENIA, UNSPECIFIED Status: Chronic Priority : High (9) Traumatic compression fracture of T12 thoracic vertebra SNOMED Code(s): 872605990 ICD Code: S22.080A - WEDGE COMPRESSION FRACTURE OF T11-T12 VERTEBRA, INIT Status: Chronic Priority: Medium Qualifiers: Encounter type: subsequent encounter Fracture healing: with routine healing Qualified Code(s): S22.080D - Wedge compression fracture of T11-T12 vertebra, subsequent encounter for fracture with routine healing (10) Volume depletion SNOMED Code(s): 90421364 ICD Code: E86.9 - VOLUME DEPLETION, UNSPECIFIED Status: Acute Priority: High (11) Acute renal failure SNOMED Code(s): 73448440 ICD Code: N17.9 - ACUTE KIDNEY FAILURE, UNSPECIFIED Status: Acute Priority: High Qualifiers: Acute renal failure type: unspecified Qualified Code(s): N17.9 - Acute kidney failure, unspecified (12) Coronary artery disease SNOMED Code(s): 54779142 ICD Code: I25.10 - ATHSCL HEART DISEASE OF [place] CORONARY ARTERY W/O ANG PCTRS Status: Chronic Priority: Low Qualifiers: Coronary Disease-Associated Artery/Lesion type: unspecified vessel or lesion type Associated angina: with stable angina (13) History of permanent cardiac pacemaker placement SNOMED Code(s): 917868438 ICD Code: Z95.0 - PRESENCE OF CARDIAC PACEMAKER Status: Chronic Priority : Medium (14) S/P lobectomy of lung SNOMED Code(s): 13715056806236222, 417612965, 96759362675793070 ICD Code: Z90.2 - ACQUIRED ABSENCE OF LUNG [PART OF] Status: Chronic Priority: Medium (15) Polypharmacy SNOMED Code(s): 233658135 ICD Code: Z79.899 - OTHER PRISON (CURRENT) DRUG THERAPY Status: Acute Priority: High - Patient Summary/Data Consults: Consultations 08/31/18 07:58 Consult to Case Management/Pillow Cleaner [CONS] Routine Consult to Spiritual Care [CONS] Routine OT Evaluation and Treatment [CONS] Routine PT Evaluation and Treatment [CONS] Routine 08/31/18 09:45 Consult to Physician [CONS] Routine 09/01/18 15:35 Consult to Speech Language Pathology [CONCRETE PLACEMENT EQUIPMENT OPERATOR Evaluation and Treatment] [CONS] Routine Labs Pending at D/C: None Recommended Follow-up Testing/Procedures: Follow-up with PCP within 7-10 days of discharge Follow-up with psychiatry as needed. Follow-up with Dr. Talbert at scheduled appointment regarding lumbar compression fracture. Hospital Course: I/P: Acute: Altered mental status 2/2 polypharmacy and narcotic overdose -2/2 oversedation with multiple pain and psychiatric medications -Patient normally alert and able to hold conversation with ease -Lethargic and unable to communicate -Pinpoint pupils noted in ED -On multiple pain and anti-anxiety medications - has kyphoplasty scheduled 2/ 2 compression fracture -Head CT in ED negative for acute changes -UA negative, CXR negative for acute changes. -Oxygen saturations remained high -Narcan 0.4mg given with good results -Now more alert -Jigar consult to review medications -> discontinued several medications -Resume fentanyl patch at 50mcg -Repeat head CT negative for acute changes Kidney failure, stable to improving -Acute on chronic -Baseline GFR appears to be in the upper 40s and low 50s -BUN 55-->46-->37-->36-->40 -Creatinine 1.9-->1.6-->1.3-->1.3-->1.3 -eGFR 34-->41-->52-->52-->52 -IV fluids as ordered Elevated BNP -History of HTN but no heart failure noted in prior history -1+ pitting edema noted in ankles in ED, trace on floor -pro-BNP 6673-->4991-->4027-->9708-->71260 -CXR in ED shows increased lung markings - suspect chronic redistribution from pneumonectomy -60mg lasix given in ED -40mg lasix given on floor -Gloria placed in ED for I&O monitoring -> discontinue -Continue diuretic as ordered -Monitor - Clinically he does not appear to be fluid overloaded -Echo obtained 09/02/18 1. Left ventricular ejection fraction, by visual estimation, is 50-55% 2. Akinesis of the inferior, basal inferior and inferior septal left ventricular sweeney. 3. Right ventricular size is mildly enlarged. 4. Severely dilated left atrium. 5. Mildly dilated right atrium. 6. There is mild aortic valve sclerosis. 7. Mild mitral valve regurgitation. 8. Trace aortic valve regurgitation. 9. [id number]-sy-lbuuqaup tricuspid valve regurgitation. 10. Mild dilation of the aortic root and ascending aorta. 11. Right ventricular systolic pressure is severely elevated at 70.7 mmHg 12. The study was performed with the patient in atrial fibrillation/ flutter. Thrombocytopenia, improving -Acute on chronic -Platelets 48-->57-->57-->64-->65 -61-92 on prior visits -Avoid antiplatelet medications is possible -Monitor Polypharmacy -Multiple pain and anti-anxiety medications -Dr. Kimball reviewed medications and discontinued several -Came into ED with oversedation -> reversed with narcan -Continue to find balance with pain and anxiety -Has lumbar spine compression fracture which will be fixed surgically by Dr. Talbert at end of month Hypokalemia -Potassium 3.0->3.1 -Supplemented Hypomagnesemia -Magnesium 1.7 -Supplemented Inactive: Elevated troponin, decreasing -Denies chest pain -12-lead EKG in ED shows 100% paced rhythm -Troponin 0.082-->0.072-->0.071 -CKMB 1.1-->1.8-->1.0 -Trend troponins Chronic: Heart of hearing CAD HLD HTN Pacemaker Stents Malignant pulmonary neoplasm with subsequent right sided pneumonectomy GERD BPH Urinary retention Arthritis Chronic back pain DJD Osteopenia L5-S1 fusion Compression fx of T12 vertebra - scheduled for vertebroplasty at end of month with Dr. Talbert Anxiety Depression Anemia Colon cancer Prostate cancer Plan: Admit to medical floor on telemetry Other orders as indicated above Home medications as ordered PT/OT - needs to wear brace when ambulating CM/SW for discharge planning Routine AM labs DVT prophylaxis: SCDs; Pharmacological contraindicated 2/2 low platelets Will need narcan at discharge Code status: DNR; PCP: Dr. Ervin Ehsan presented to the ED unresponsive and with pinpoint pupils. Narcan was given to reverse his overdose and he had a rapid response. He was admitted to the floor. Dr. Kimball was consulted and discontinued many of his home medications as we was concerned over patient safety. Ehsan was on 45 mg Remeron at bedtime, 30 mg Cymbalta daily, Xanax 0.5 mg 3 times a day with 1 additional milligram every afternoon and 1 mg at bedtime, Celebrex 200 mg daily , Tylenol 650 mg at bedtime and 225 mg 3 times a day PRN, Neurontin 300 mg 3 times a day, Glasgow 1 tablet 4 times a day and 2 additional tablets at bedtime, along with a 75 g fentanyl patch. Ultimately his daily 30 mg Cymbalta and 45 mg bedtime Remeron were continued. Along with this his 4 times a day scheduled Glasgow was continued. Fentanyl patch was decreased from 75 g to 50 g. After 1 day the patient did appear somewhat anxious and was having difficulty with sleeping. Nursing contacted Dr. Kimball who then ordered 1 mg Xanax at bedtime. He was noted to be somewhat more confused and weak and therefore a CT scan of his head was ordered which was negative for acute findings. His MRSA screen was negative although it was found to be positive earlier at a clinic visit and he was therefore placed on contact precautions. Echo was obtained as above due to initial concerns over fluid overload but clinically he did not appear to be fluid overloaded. Prior to discharge Ehsan's daughter and BRITTANEY Watson was contacted and updated on progress. Concerns were raised over discharging him on his home medications due to severe safety risks with multiple drug combinations. She agreed and requested he be discharged on what he was receiving here for medications. His other medications and supplements were continued however his new pain and psychiatric regimen included 30 mg Cymbalta and 40 mg bedtime Remeron, 4 times a day 1 tablet scheduled Glasgow, 1 mg Xanax at bedtime, and 50 g fentanyl patch. Both him and family were instructed to ensure he follows up with Dr. Qiu for scheduled kyphoplasty as this will likely improve his pain substantially. Dr. Ervin was contacted by Dr. Watt to give an update on the patient's medications and discharge. He was instructed to follow-up with his primary care provider within 7-10 days of discharge, along with psychiatric services as needed. He was discharged on 4 mg intranasal Narcan as needed for narcotic overdose. He was discharged back to [facility] today. - Patient Instructions Diet: Usual Diet as Tolerated Activity: As Tolerated Driving: Do Not Drive Notify Provider of: Fever, Increased Pain, Swelling and Redness Other/Special Instructions: -Follow-up with PCP within 7-10 days of discharge. -Follow-up with psychiatry as needed outpatient for anxiety. -Follow-up with Dr. Talbert regarding compression fracture as scheduled. -Be sure to wear back brace when walking. -Continue with PT/OT at SNF. -Resume home medications as ordered. There were medication changes. -Narcan has been ordered for narcotic overdose. Administer PRN as directed. -Discussed medication list with POA daughter. She would like to continue with the regimine we had here. This can be adjusted with PCP if needed in the future. -Should symptoms return or worsen, contact PCP or return to the ED. - Discharge Plan *PRESCRIPTION DRUG MONITORING PROGRAM REVIEWED*: No *COPY OF PRESCRIPTION DRUG MONITORING REPORT IN PATIENT BERNADETTE: No Prescriptions/Med Rec: ALPRAZolam [Xanax] 1 mg PO BEDTIME #15 tablet fentaNYL [Duragesic] 50 mcg TRDERM Q72H #5 patch Naloxone HCl [Narcan] 4 mg NS ONETIME PRN #1 spray PRN Reason: Narcotic overdose Home Medications: Home Meds Allopurinol [Zyloprim] 150 mg PO DAILY 02/02/14 [History] Aspirin [[place] Chewable Aspirin] 81 mg PO DAILY 02/02/14 [History] Calcium Carb/Vit D3/Minerals [Calcium 1,200 mg Tablet Chew] 500 mg PO DAILY [History] Clopidogrel [Plavix] 75 mg PO DAILY 02/02/14 [History] Cyanocobalamin (Vitamin B12) [Vitamin B12] 1,000 mcg PO DAILY 02/02/14 [History] Ferrous Sulfate [Iron] 325 mg PO DAILY 02/02/14 [History] Metoprolol Tartrate 25 mg PO BID 02/02/14 [History] Potassium Chloride [Klor-Con M20] 20 meq PO BID 02/02/14 [History] Cholecalciferol (Vitamin D3) [Vitamin D3] 1,000 unit PO DAILY 12/29/15 [History] DULoxetine HCl [Duloxetine HCl] 30 mg PO DAILY 12/29/15 [History] Docusate Sodium [Colace] 200 mg PO DAILY 12/29/15 [History] Polyethylene Glycol 3350 [MiraLAX] 17 gm PO DAILY PRN 12/29/15 [History] Acetaminophen [Tylenol] 650 mg PO BEDTIME 12/23/16 [History] Captopril/Hydrochlorothiazide [Captopril-Hctz 50-25 mg Tablet] 1 tab PO BID 06/29 [History] Hydrocodone/Acetaminophen [Hydrocodon-Acetaminoph 7.5-325] 1 tab PO QID [History] Acetaminophen [Tylenol] 325 mg PO TID PRN 08/30/18 [History] Bisacodyl [Dulcolax] 10 mg RC DAILY PRN 08/30/18 [History] Doxazosin Mesylate [Cardura XL] 8 mg PO BEDTIME 08/30/18 [History] Mirtazapine [Remeron] 45 mg PO BEDTIME 08/30/18 [History] Ondansetron [Zofran ODT] 4 mg PO TID PRN 08/30/18 [History] Pantoprazole Sodium [Protonix] 40 mg PO DAILY 08/30/18 [History] Polyvinyl Alcohol/Povidone/Pf [Refresh Classic Eye Drops] 1 drop EYEBOTH DAILY 08/30/18 [History] atorvaSTATin [Lipitor] 10 mg PO BEDTIME 08/30/18 [History] Calcium Carbonate/Vitamin D3 [Calcium 500-Vit D3 600 Caplet] 1 tab PO DAILY [History] ALPRAZolam [Xanax] 1 mg PO BEDTIME #15 tablet 09/03/18 [Rx] Naloxone HCl [Narcan] 4 mg NS ONETIME PRN #1 spray 09/03/18 [Rx] fentaNYL [Duragesic] 50 mcg TRDERM Q72H #5 patch 09/03/18 [Rx] Oxygen Therapy Mode: Room Air Maintain SpO2% greater than: 92 Patient Handouts: Opioid Overdose Referrals: Espinoza Ervin MD [Primary Care Provider] - 09/08/18 2:00 pm (Please follow up with Dr. Ervin on FridaySeptember 08 at 1400.) - Discharge Summary/Plan Comment DC Time >30 min.: Yes (60 mins) - General Info Date of Service: 09/03/18 Admission Dx/Problem (Free Text: Admission Diagnosis/Problem Admission Diagnosis/Problem Altered level of consciousness Subjective Update: In to see Ehsan. He is sitting up in bed. He has no acute complaints but continues to report left hip pain when asked. Explained to him why he is here and our concerns with his medications. He will be discharged back to [facility] today. Daughter/POArielle Watson is updated on progress and why we did what we did while here. She has no concerns with discharge. Dr. Kimball was contacted last night about Ehsan's anxiety and added back in a bedtime dose of xanex. Functional Status: Reports: Pain Controlled, Tolerating Diet, Ambulating, Urinating. Denies: New Symptoms - Review of Systems General: Reports: Weakness. Denies: Fever, Fatigue, Malaise, Chills HEENT: Reports: No Symptoms. Denies: Headaches, Sore Throat Pulmonary: Reports: No Symptoms. Denies: Shortness of Breath, Cough, Sputum, Wheezing Cardiovascular: Reports: No Symptoms. Denies: Chest Pain, Palpitations, Dyspnea on Exertion, Edema Gastrointestinal: Reports: No Symptoms. 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 Denies: Confusion Psychiatric: Reports: No Symptoms - Patient Data Vitals - Most Recent: Last Vital Signs Temp 98.4 F 09/03/18 07:58 Pulse 60 09/03/18 08:48 Resp 28 H 09/03/18 08:00 BP 145/87 H 09/03/18 08:48 Pulse Ox 95 09/03/18 07:58 Weight - Most Recent: 193 lb 12.8 oz I&O - Last 24 hours: Intake & Output 09/02/18 09/03/18 09/03/18 22:59 06:59 14:59 Intake Total 520 200 180 Output Total 700 Balance -180 200 180 Lab Results - Last 24 hrs: Laboratory Results - last 24 hr 09/03/18 09/03/18 09/03/18 Range/Units 05:39 05:39 05:39 WBC 5.02 (4.23-9.07) K/mm3 RBC 4.30 L (4.63-6.08) M/mm3 Hgb 12.8 L (13.7-17.5) gm/L Hct 41.9 (40.1-51.0) % MCV 97.4 H (79.0-92.2) fl MCH 29.8 (25.7-32.2) pg MCHC 30.5 L (32.2-35.5) g/dl RDW Std Deviation 47.9 H (35.1-43.9) fL Plt Count 65 L (163-337) K/mm3 MPV TNP Neut % (Auto) 81.2 H (34.0-67.9) % Lymph % (Auto) 9.8 L (21.8-53.1) % Cass % (Auto) 8.8 (5.3-12.2) % Eos % (Auto) 0 L (0.8-7.0) Baso % (Auto) 0.0 L (0.1-1.2) % Neut # (Auto) 4.08 (1.78-5.38) K/mm3 Lymph # (Auto) 0.49 L (1.32-3.57) K/mm3 Cass # (Auto) 0.44 (0.30-0.82) K/mm3 Eos # (Auto) 0.00 L (0.04-0.54) K/mm3 Baso # (Auto) 0.00 L (0.01-0.08) K/mm3 Manual Slide Review Abnormal smear Sodium 144 (136-145) mEq/L Potassium 3.1 L (3.5-5.1) mEq/L Chloride 103 (98-107) mEq/L Carbon Dioxide 36 H (21-32) mEq/L Anion Gap 8.1 (5-15) BUN 40 H (7-18) mg/dL Creatinine 1.3 (0.7-1.3) mg/dL Est Cr Clr Drug Dosing 42.22 mL/min Estimated GFR (MDRD) 52 (>60) mL/min BUN/Creatinine Ratio 30.8 H (14-18) Glucose 115 (83-115) mg/dL Calcium 9.1 (8.5-10.1) mg/dL Magnesium 1.7 L (1.8-2.4) mg/dl NT-Pro-B Natriuret Pep 54837 H (0-450) pg/mL DASIA Results - Last 24 hrs: Microbiology 08/30/18 22:24 Aerobic Blood Culture - Preliminary Blood - Venous - Lab Draw NO GROWTH AFTER 3 DAYS Anaerobic Blood Culture - Preliminary NO GROWTH AFTER 3 DAYS 08/30/18 22:15 Aerobic Blood Culture - Preliminary Blood - Venous NO GROWTH AFTER 3 DAYS Anaerobic Blood Culture - Preliminary NO GROWTH AFTER 3 DAYS Med Orders - Current: Current Medications Acetaminophen (Tylenol) 650 mg PO Q4H PRN PRN Reason: Pain (Mild 1-3)/fever Acetaminophen (Tylenol) 650 mg PO BEDTIME [facility] Last Admin: 09/02/18 21:04 Dose: 650 mg Hydrocodone Bitart/Acetaminophen ([place] 325-5 Mg) 1 tab PO QID [facility] Last Admin: 09/03/18 12:45 Dose: 1 tab Allopurinol (Zyloprim) 150 mg PO DAILY [facility] Last Admin: 09/03/18 08:45 Dose: 150 mg Alprazolam (Xanax) 1 mg PO BEDTIME [facility] Last Admin: 09/02/18 21:05 Dose: 1 mg Artificial Tears (Refresh Liquigel 1%) 0 ml EYEBOTH DAILY [facility] Last Admin: 09/03/18 08:49 Dose: 1 drop Aspirin (Aspirin) 81 mg PO DAILY [facility] Last Admin: 09/03/18 08:47 Dose: 81 mg Bisacodyl (Dulcolax) 10 mg RECTAL DAILY PRN PRN Reason: Constipation Cholecalciferol (Vitamin D3) 1,000 units PO DAILY [facility] Last Admin: 09/03/18 08:47 Dose: 1,000 units Clopidogrel Bisulfate (Plavix) 75 mg PO DAILY [facility] Last Admin: 09/03/18 08:48 Dose: 75 mg Cyanocobalamin (Vitamin B12) 1,000 mcg PO DAILY [facility] Last Admin: 09/03/18 08:44 Dose: 1,000 mcg Docusate Sodium (Colace) 200 mg PO DAILY [facility] Last Admin: 09/03/18 08:47 Dose: 200 mg Duloxetine HCl (Cymbalta) 30 mg PO DAILY [facility] Last Admin: 09/03/18 08:48 Dose: 30 mg Famotidine (Pepcid) 20 mg PO Q24H [facility] Last Admin: 09/02/18 21:05 Dose: 20 mg Fentanyl (Duragesic) 50 mcg TRDERM Q72H [facility] Last Admin: 09/01/18 14:42 Dose: 50 mcg Ferrous Sulfate (Ferrous Sulfate) 325 mg PO DAILY [facility] Last Admin: 09/03/18 08:46 Dose: 325 mg Furosemide (Lasix) 40 mg IVPUSH DAILY [facility] Last Admin: 09/03/18 09:49 Dose: 40 mg Hydralazine HCl (Apresoline) 10 mg IVPUSH Q6H PRN PRN Reason: Hypertension Magnesium Sulfate (Pharmacy To Dose - Magnesium Replacement) 0 dose .XX ASDIRECTED PRN PRN Reason: RX TO WATCH MAG Metoprolol Tartrate (Lopressor) 5 mg IVPUSH Q4H PRN PRN Reason: Tachycardia Metoprolol Tartrate (Lopressor) 25 mg PO BID [facility] Last Admin: 09/03/18 08:48 Dose: 25 mg Mirtazapine (Remeron) 45 mg PO BEDTIME [facility] Last Admin: 09/02/18 21:09 Dose: 45 mg Miscellaneous Information (Remove Patch) 0 ea TRDERM Q72H [facility] Ondansetron HCl (Zofran) 4 mg IVPUSH Q4H PRN PRN Reason: Nausea Last Admin: 09/03/18 06:53 Dose: 4 mg Potassium Chloride (Pharmacy To Dose - Potassium Replacement) 0 dose .XX ASDIRECTED PRN PRN Reason: RX TO WATCH K Simethicone (Simethicone) 80 mg PO ASDIRECTED PRN PRN Reason: Gas, Bloating Last Admin: 09/03/18 12:56 Dose: 80 mg Simvastatin (Zocor) 10 mg PO BEDTIME [facility] Last Admin: 09/02/18 21:05 Dose: 10 mg Discontinued Medications Alprazolam (Xanax) 0.5 mg PO TID [facility] Last Admin: 08/31/18 15:56 Dose: 0.5 mg Alprazolam (Xanax) 1 mg PO BEDTIME JOLEEN Furosemide (Lasix) 60 mg IVPUSH NOW ONE Stop: 08/30/18 23:08 Last Admin: 08/30/18 23:30 Dose: 60 mg Furosemide (Lasix) 40 mg IVPUSH ONETIME ONE Stop: 08/31/18 06:01 Last Admin: 08/31/18 06:12 Dose: 40 mg Gabapentin (Neurontin) 300 mg PO TID [facility] Last Admin: 08/31/18 15:56 Dose: 300 mg Dextrose/Sodium Chloride (Dextrose 5%-Normal Saline) 1,000 mls @ 500 mls/hr IV ASDIRECTED [facility] Last Admin: 08/30/18 22:45 Dose: 500 mls/hr Dextrose/Sodium Chloride (Dextrose 5%-Normal Saline) 1,000 mls @ 75 mls/hr IV ASDIRECTED JOLEEN Dextrose/Sodium Chloride (Dextrose 5%-Normal Saline) 1,000 mls @ 75 mls/hr IV ASDIRECTED [facility] Last Admin: 08/31/18 09:07 Dose: 75 mls/hr Magnesium Hydroxide (Milk Of Magnesia) 30 ml PO ONETIME ONE Stop: 09/01/18 11:26 Last Admin: 09/01/18 12:22 Dose: Not Given Magnesium Oxide (Magnesium Oxide) 800 mg PO ONETIME ONE Stop: 09/01/18 10:01 Last Admin: 09/01/18 11:14 Dose: 800 mg Magnesium Oxide (Magnesium Oxide) 400 mg PO ONETIME ONE Stop: 09/02/18 12:31 Last Admin: 09/02/18 13:25 Dose: 400 mg Magnesium Oxide (Magnesium Oxide) 400 mg PO ONETIME ONE Stop: 09/02/18 18:01 Last Admin: 09/02/18 18:21 Dose: 400 mg Magnesium Oxide (Magnesium Oxide) 400 mg PO ONETIME ONE Stop: 09/03/18 12:01 Last Admin: 09/03/18 12:46 Dose: 400 mg Naloxone HCl (Narcan) 0.4 mg IVPUSH ONETIME ONE Stop: 08/30/18 22:39 Last Admin: 08/30/18 23:25 Dose: 0.4 mg Non-Formulary Medication (Celecoxib [Celecoxib]) 200 mg PO DAILY [facility] Last Admin: 08/31/18 11:11 Dose: Not Given Non-Formulary Medication (Doxazosin Mesylate [Cardura Xl]) 8 mg PO BEDTIME JOLEEN Potassium Chloride (Klor-Con M20) 20 meq PO BID [facility] Last Admin: 08/31/18 09:25 Dose: Not Given Potassium Chloride (Klor-Con M20) 40 meq PO ONETIME ONE Stop: 09/02/18 12:31 Last Admin: 09/02/18 13:24 Dose: 40 meq Potassium Chloride (Klor-Con M20) 40 meq PO ONETIME ONE Stop: 09/02/18 18:01 Last Admin: 09/02/18 18:18 Dose: 40 meq Potassium Chloride (Klor-Con M20) 60 meq PO ONETIME ONE Stop: 09/03/18 12:01 Last Admin: 09/03/18 12:44 Dose: 60 meq Scopolamine (Transderm-Scop) 1.5 mg TOP ONETIME ONE Stop: 09/01/18 16:33 Last Admin: 09/01/18 17:59 Dose: 1.5 mg - Exam Quality Assessment: Reports: DVT Prophylaxis General: Reports: Alert, Cooperative, No Acute Distress HEENT: Reports: Pupils Equal, Pupils Reactive, EOMI, Mucous Membr. Moist/[place] Neck: Reports: Supple, Trachea Midline Lungs: Reports: Clear to Auscultation, Normal Respiratory Effort, Decreased Breath Sounds Cardiovascular: Reports: Regular Rate, Regular Rhythm, Other (100% paced ) GI/Abdominal Exam: Normal Bowel Sounds, Soft, Non-Tender, No Organomegaly, No Distention (Male) Exam: Deferred Rectal (Males) Exam: Deferred Back Exam: Reports: Normal Inspection, Full Range of Motion Extremities: Normal Inspection, Normal Range of Motion, Non-Tender, No Pedal Edema, Normal Capillary Refill Skin: Reports: Warm, Dry, Intact Neurological: Reports: No New Focal Deficit Psy/Mental Status: Reports: Alert. Denies: Anxious
== END 2018-09-03 15:35 | DRG 917 ==
LOC: SUPCPDRO 21:33 → JD.ED 21:33 → JD.MS 08-31 00:20
PROVIDERS: ADMIT Internal Medicine Cardiovascular Disease; ATTEND Internal Medicine Cardiovascular Disease
DX: T40.2X1A Poisoning by other opioids, accidental (unintentional), initial encounter (principal); I50.33 Acute on chronic diastolic (congestive) heart failure; S22.080A Wedge compression fracture of T11-T12 vertebra, initial encounter for closed fracture; I13.0 Hypertensive heart and chronic kidney disease with heart failure and stage 1 through stage 4 chronic kidney disease, or unspecified chronic kidney disease; N17.9 Acute kidney failure, unspecified; F11.23 Opioid dependence with withdrawal; R41.82 Altered mental status, unspecified; W19.XXXA Unspecified fall, initial encounter; I25.118 Atherosclerotic heart disease of native coronary artery with other forms of angina pectoris; D69.6 Thrombocytopenia, unspecified; M54.9 Dorsalgia, unspecified; E86.9 Volume depletion, unspecified; D72.819 Decreased white blood cell count, unspecified; E78.00 Pure hypercholesterolemia, unspecified; K21.9 Gastro-esophageal reflux disease without esophagitis; N18.3 Chronic kidney disease, stage 3 (moderate); D50.9 Iron deficiency anemia, unspecified; M19.90 Unspecified osteoarthritis, unspecified site; G89.29 Other chronic pain; H54.7 Unspecified visual loss; E87.6 Hypokalemia; E83.42 Hypomagnesemia; R74.8 Abnormal levels of other serum enzymes; H91.90 Unspecified hearing loss, unspecified ear; Z90.49 Acquired absence of other specified parts of digestive tract; Z85.46 Personal history of malignant neoplasm of prostate; R53.83 Other fatigue; R68.0 Hypothermia, not associated with low environmental temperature; Z85.038 Personal history of other malignant neoplasm of large intestine; Z66 Do not resuscitate; Z88.8 Allergy status to other drugs, medicaments and biological substances; Z79.02 Long term (current) use of antithrombotics/antiplatelets; Z79.82 Long term (current) use of aspirin; Z95.5 Presence of coronary angioplasty implant and graft; Z90.2 Acquired absence of lung [part of]; Z90.79 Acquired absence of other genital organ(s); Z85.118 Personal history of other malignant neoplasm of bronchus and lung; F41.9 Anxiety disorder, unspecified; F32.9 Major depressive disorder, single episode, unspecified; E78.5 Hyperlipidemia, unspecified; M85.80 Other specified disorders of bone density and structure, unspecified site; Z98.1 Arthrodesis status; Z79.899 Other long term (current) drug therapy; Z87.891 Personal history of nicotine dependence; Z95.0 Presence of cardiac pacemaker
CPT/HCPCS: 36415; 51702; 70450; 71045; 80053; 81001; 82553; 82962; 83605; 83735; 83880; 84484; 85007; 85027; 85610; 85652; 85730; 86140; 87040 ×2; 93005; 94762; 96361; 96374; 96375; 99285; J1940; J2310; J7042; 80048; 85025; 87641; 92610-GN; 93010; 93306; 94761; 97110-GO; 97110-GP; 97116-GP; 97161-GP; 97165-GO; 97530-GP; A9270-GY; J2405

== ENCOUNTER 2018-09-10 09:01 | Day surgery (SDC) | payer MEDICARE, BC, MEDICAID ==
--- NOTE | 2018-08-24 16:04 | HP ---
DATE OF ADMISSION: 09/10/2018 Orthopedic outpatient admitting history and physical for surgery. HISTORY: This is the first orthopedic outpatient admission for surgery for this 88-year- old male who is being scheduled for a kyphoplasty and fracture stabilization of T12. The patient suffered an injury dating the first part of July. He has had severe pain with pain scales ranging from 8 to 10. He is on significant narcotic pain suppression medication. He has limited activity with his functional loss 80% to 90% of what it was normal. The patient underwent a CT scan or bone scan and x-ray shows a comminuted compression fracture of T12. The patient is now being scheduled for the kyphoplasty, fracture stabilization, and biopsy. Procedure has been outlined to him and his family. They understand the procedure and consented to it. ALLERGIES: To prednisone. PAST MEDICAL HISTORY: Medically, the patient has a history of anemia, arthritis, chronic pain, depression, gout, high blood pressure, hyperlipidemia, prostate cancer, colon cancer history. CURRENT MEDICATIONS: The patient is on multiple medications, albuterol, alprazolam, atorvastatin. He is on Plavix, Cardura, Crestor. He is also on supplemental iron, gabapentin. His pain medicines does include hydrocodone, fentanyl, metoprolol, and Norvasc, and multiple other medications noted. PAST SURGICAL HISTORY: Surgical history is positive. He has had previous lung surgery, colon surgery, prostate surgery. Notes no specific anesthesia complications or problems. Has a negative bleeding history, negative blood clot history. The patient has a pacemaker. SOCIAL HISTORY: He had tobacco use. He states he quit approximately 50 years ago. Alcohol use, the patient is a nondrinker at this time. PHYSICAL EXAMINATION: GENERAL: Reveals a well-developed, well-nourished 88-year-old male, in moderate - to-severe distress. HEAD, EYES, EARS, NOSE, AND THROAT: Normocephalic. NECK: Supple. CHEST: Clear. COR: Rate is maintained by pacemaker. ABDOMEN: Soft. : Intact. EXTREMITIES: Examination of the thoracic lumbar spine reveals severe pain to direct pressure palpation over the thoracic spine at the level of the thoracic lumbar junction. Positive percussion palpation pain. Positive left-sided pain extending down to the top of the pelvis. RADIOLOGY EVALUATION: 1. X-rays show a comminuted compression fracture of T12. 2. CT scan also shows a fragmentation with no healing noted. ASSESSMENT: The overall impression is acute osteoporotic compression of T12, intractable pain. PLAN: Plan is for the patient to undergo surgical kyphoplasty, fracture stabilization of T12 along with biopsy. JOHN /[id number] MTDD
[~2018-09-10 09:01] MED LIST changes: +Lidocaine 1%/Sod Bicarbonate in NS 8.4% 1 ML Syringe IDERM PRN; -Lidocaine 1%/Sod Bicarbonate in NS 8.4% 1 ML Syringe IV PRN
[2018-09-10] MEDS ORDERED: Ondansetron 4 MG/2 ML SDV IVPUSH ONE (09:44)
[2018-09-10] MEDS ORDERED: Ondansetron 4 MG/2 ML SDV ONE (09:53)
--- NOTE | 2018-09-10 10:08 | PCM.PREANE ---
Preanesthetic Assessment - Anesthesia/Transfusion/Family Hx Anesthesia History: Prior Anesthesia Without Reaction Family History of Anesthesia Reaction: No Transfusion History: No Prior Transfusion(s) - Review of Systems General: Weakness, Fatigue, Malaise Pulmonary: No Symptoms Cardiovascular: No Symptoms Gastrointestinal: Nausea Neurological: Gait Disturbance Other: Reports: Easy Bleeding, Easy Bruising - Physical Assessment NPO Status Date: 09/09/18 NPO Status Time: 00:00 Pulse: 66 O2 Sat by Pulse Oximetry: 93 Respiratory Rate: 20 Blood Pressure: 119/76 Temperature: 36.9 C Vital Signs: Last Vital Signs Temp 36.9 C 09/10/18 09:15 Pulse 66 09/10/18 09:15 Resp 20 09/10/18 09:15 BP 119/76 09/10/18 09:15 Pulse Ox 93 L 09/10/18 09:15 Height: 1.73 m Weight: 83.915 kg ASA Class: 3 Mental Status: Alert & Oriented x3 Airway Class: Mallampati = 2 Dentition: Reports: Dentures (top), Broken Tooth/Teeth, Missing Tooth/Teeth Thyro-Mental Finger Breadths: 2 Mouth Opening Finger Breadths: 2 ROM/Head Extension: Limited/Partial Lungs: Clear to Auscultation, Normal Respiratory Effort, Decreased Breath Sounds (no breath sounds on the right) Cardiovascular: Regular Rate, Regular Rhythm - Lab Values: Laboratory Last Values Sodium 144 mEq/L (136-145) 09/10/18 09:25 Potassium 3.4 mEq/L (3.5-5.1) L 09/10/18 09:25 Chloride 105 mEq/L (98-107) 09/10/18 09:25 Carbon Dioxide 30 mEq/L (21-32) 09/10/18 09:25 Anion Gap 12.4 (5-15) 09/10/18 09:25 BUN 33 mg/dL (7-18) H 09/10/18 09:25 Creatinine 1.1 mg/dL (0.7-1.3) 09/10/18 09:25 Est Cr Clr Drug Dosing TNP 09/10/18 09:25 Estimated GFR (MDRD) > 60 mL/min (>60) 09/10/18 09:25 BUN/Creatinine Ratio 30.0 (14-18) H 09/10/18 09:25 Glucose 112 mg/dL (83-115) 09/10/18 09:25 Calcium 9.1 mg/dL (8.5-10.1) 09/10/18 09:25 - Imaging/EKG Impressions: paced rhythm on chart - Allergies Allergies/Adverse Reactions: Allergies Allergy/AdvReac Type Severity Reaction Status Date / Time prednisone Allergy Cannot Verified 09/09/18 15:53 Remember - Blood Blood Available: No Product(s) Available: None - Anesthesia Plan Pre-Op Medication Ordered: Beta Deven Beta Deven: Metoprolol Med Last Dose Date: 09/10/18 Med Last Dose Time: 08:30 - Acknowledgements Anesthesia Type Planned: MAC Pt an Appropriate Candidate for the Planned Anesthesia: Yes Alternatives and Risks of Anesthesia Discussed w Pt/Guardian: Yes Pt/Guardian Understands and Agrees with Anesthesia Plan: Yes PreAnesthesia Questionnaire HEENT History: Reports: Hard of Hearing, Impaired Vision Other HEENT History: left hearing aid, uses glasses Cardiovascular History: Reports: CAD, High Cholesterol, Hypertension, Pacemaker , Stents, Other (See Below) Other Cardiovascular History: pericardial effusion Respiratory History: Reports: Other (See Below) Other Respiratory History: malignant pulmonary neoplasm, dyspnea Gastrointestinal History: Reports: GERD Genitourinary History: Reports: BPH, Prostate Disorder, Retention, Urinary Other Genitourinary History: urinary retention [employer] History: Reports: None Musculoskeletal History: Reports: Arthritis, Back Pain, Chronic, Other (See Below) Other Musculoskeletal History: degenerative disk disease, osteopenia Psychiatric History: Reports: Anxiety, Depression Endocrine/Metabolic History: Reports: None Hematologic History: Reports: Anemia, Blood Transfusion(s), Other (See Below) Other Hematologic History: hypokalemia Immunologic History: Reports: None Oncologic (Cancer) History: Reports: Colon, Lung, Prostate Dermatologic History: Reports: None - Infectious Disease History Infectious Disease History: Reports: Other (See Below) Other Infectious Disease History: unknown. daughters present upon admission were not sure of this or how tall the pt was - Past Surgical History Head Surgeries/Procedures: Reports: None HEENT Surgical History: Reports: Cataract Surgery Cardiovascular Surgical History: Reports: Pacer Respiratory Surgical History: Reports: Pneumonectomy Other Respiratory Surgeries/Procedures: right lung removed GI Surgical History: Reports: Cholecystectomy, Colonoscopy, Other (See Below) Other GI Surgeries/Procedures: Colectomy Male Surgical History: Reports: Prostate Biopsy, Prostatectomy, TURP- Transurethral Resection of Prostate Neurological Surgical History: Reports: Other (See Below) Other Neurological Surgeries/Procedures: spine surgery x 2 Other Musculoskeletal Surgeries/Procedures:: Right ankle ORIF - SUBSTANCE USE Recreational Drug Use History: No - HOME MEDS Home Medications: Home Meds Allopurinol [Zyloprim] 150 mg PO DAILY 02/02/14 [History] Cyanocobalamin (Vitamin B12) [Vitamin B12] 1,000 mcg PO DAILY 02/02/14 [History] Ferrous Sulfate [Iron] 325 mg PO DAILY 02/02/14 [History] Metoprolol Tartrate 25 mg PO BID 02/02/14 [History] Potassium Chloride [Klor-Con M20] 30 meq PO BID 02/02/14 [History] Cholecalciferol (Vitamin D3) [Vitamin D3] 1,000 unit PO DAILY 12/29/15 [History] DULoxetine HCl [Duloxetine HCl] 30 mg PO DAILY 12/29/15 [History] Docusate Sodium [Colace] 200 mg PO DAILY 12/29/15 [History] Polyethylene Glycol 3350 [MiraLAX] 17 gm PO DAILY PRN 12/29/15 [History] Acetaminophen [Tylenol] 650 mg PO BEDTIME 12/23/16 [History] Captopril/Hydrochlorothiazide [Captopril-Hctz 50-25 mg Tablet] 1 tab PO BID 06/29 [History] Hydrocodone/Acetaminophen [Hydrocodon-Acetaminoph 7.5-325] 1 tab PO QID [History] Acetaminophen [Tylenol] 325 mg PO TID PRN 08/30/18 [History] Bisacodyl [Dulcolax] 10 mg RC DAILY PRN 08/30/18 [History] Doxazosin Mesylate [Cardura XL] 8 mg PO BEDTIME 08/30/18 [History] Mirtazapine [Remeron] 45 mg PO BEDTIME 08/30/18 [History] Ondansetron [Zofran ODT] 4 mg PO TID PRN 08/30/18 [History] Pantoprazole Sodium [Protonix] 40 mg PO DAILY 08/30/18 [History] Polyvinyl Alcohol/Povidone/Pf [Refresh Classic Eye Drops] 1 drop EYEBOTH DAILY 08/30/18 [History] atorvaSTATin [Lipitor] 10 mg PO BEDTIME 08/30/18 [History] Calcium Carbonate/Vitamin D3 [Calcium 500-Vit D3 600 Caplet] 1 tab PO DAILY [History] fentaNYL [Duragesic] 50 mcg TRDERM Q72H #5 patch 09/03/18 [Rx] ALPRAZolam [Xanax] 1 mg PO QID 09/09/18 [History] - CURRENT (IN HOUSE) MEDS Current Meds: Current Medications Lactated Ringer's (Ringers, Lactated) 1,000 mls @ 125 mls/hr IV ASDIRECTED JOLEEN Stop: 09/10/18 23:00 Vancomycin HCl 1.5 gm/ Sodium (Chloride) 500 mls @ 333.333 mls/hr IV ONETIME ONE Stop: 09/10/18 11:59 Lidocaine/Sodium Bicarbonate (Buffered Lidocaine 1% In Ns 8.4%) 0.25 ml IDERM ONETIME PRN PRN Reason: Prior to IV Start Stop: 09/10/18 18:00 Sodium Chloride (Saline Flush) 10 ml FLUSH ASDIRECTED PRN PRN Reason: Keep Vein Open Stop: 09/10/18 18:00 Discontinued Medications Ondansetron HCl (Zofran) 4 mg IVPUSH ONETIME ONE Stop: 09/10/18 09:45 Last Admin: 09/10/18 09:59 Dose: 4 mg Ondansetron HCl (Zofran) Confirm Administered Dose 4 mg .ROUTE .STK-MED ONE Stop: 09/10/18 09:54
[2018-09-10] MEDS ORDERED: Vancomycin 1 GM SDV ONE (10:20)
[2018-09-10] MEDS ORDERED: Lidocaine 1% with EPINEPHrine 1:100,000 20 ML MDV ONE (10:20)
[2018-09-10] MEDS ORDERED: Iopamidol 612 MG/ML 50 ML SDV ONE (10:21)
[2018-09-10] MEDS ORDERED: Propofol 200 MG/20 ML SDV ONE (10:26)
[2018-09-10] MEDS ORDERED: Midazolam 1 MG/ML 2 ML SDV ONE (10:27)
[2018-09-10] MEDS ORDERED: fentaNYL 100 MCG/2 ML SDV ONE (10:27)
[2018-09-10] MEDS ORDERED: Lidocaine 1% 4 ML ONE (10:28)
[2018-09-10] MEDS ORDERED: Vancomycin 1.5 GM in Sodium Chloride 0.9% 500 ML IV ONE (10:30)
[2018-09-10] MEDS ORDERED: Ketamine 500 mg/10 ML MDV ONE (10:30)
[2018-09-10] MEDS ORDERED: ceFAZolin 1 GM Vial ONE (10:46)
[2018-09-10] MEDS ORDERED: Ketorolac 15 MG/ML SDV IVPUSH PRN (11:54)
[2018-09-10] MEDS ORDERED: Ondansetron 4 MG/2 ML SDV IVPUSH PRN (11:54)
[2018-09-10] MEDS ORDERED: traMADol 50 MG Tab PO PRN (11:54)
[2018-09-10] MEDS ORDERED: fentaNYL 100 MCG/2 ML SDV IVPUSH PRN (12:04)
--- NOTE | 2018-09-10 12:06 | PCM.POSTAN ---
POST ANESTHESIA ASSESSMENT - MENTAL STATUS Mental Status: Alert, Oriented - VITAL SIGNS Pulse Rate: 65 SaO2: 98 Resp Rate: 10 Blood Pressure: 122/68 Temperature: 100.2 C - RESPIRATORY Respiratory Status: Respiratory Rate WNL, Airway Patent, O2 Saturation Stable, Supplemental Oxygen - CARDIOVASCULAR CV Status: Pulse Rate WNL, Blood Pressure Stable - GASTROINTESTINAL GI Status: No Symptoms - PAIN Pain Score: 2 - POST OP HYDRATION Hydration Status: Adequate & Stable - OBSERVATIONS Free Text/Narrative:: no anesthesia complications noted
--- NOTE | 2018-09-10 12:48 | CR ---
Thoracic spine: Multiple fluoroscopic spot views were obtained centered to the T12 vertebral level. Study obtained utilizing C-arm device. Study shows vertebroplasty procedure within compression deformity of T12. Fluoroscopy time is given as 635.1 seconds. Impression: 1. Procedural exam showing vertebroplasty. Diagnostic code #2
[2018-09-10] MEDS ORDERED: Acetaminophen/HYDROcodone 325-5 MG Tab PO ONE (12:50)
[2018-09-10 14:44] VITALS: BP 132/73
--- NOTE | 2018-09-11 07:41 | OR ---
DATE OF OPERATION: 09/10/2018 SURGEON: Chauncey Talbert MD PREOPERATIVE DIAGNOSIS: Osteoporotic compression fracture, T12; intractable pain. POSTOPERATIVE DIAGNOSIS: Osteoporotic compression fracture, T12; intractable pain. ANESTHESIA: Sedation with local. OPERATION PERFORMED: 1. Kyphoplasty fracture stabilization, T12 vertebral body. 2. Biopsy, T12 vertebral body. DESCRIPTION OF PROCEDURE: The patient was taken to the operating room in supine position, placed under a light sedation, and transferred to the operating table in a prone position. The patient was then positioned for approach to the T12 vertebral body using fluoroscopy and once the pedicles were marked on the skin, the operation proceeded with prepping and draping of the skin by a standard technique. Two stab incisions were used on the right and left side. The instrumentations for the kyphoplasty and the cannula were then inserted through the pedicle on the right and left side into the midline area of the T12 thoracic body. Of note, there was a significant hollow area in the vertebral body, which was very obvious with air completely filling the body for the middle to the anterior half. With the instrumentation in place, the operation then proceeded with cement filling of the cavity. Being very careful, the cement was placed into the cavity packing into the anterior portion of vertebral body and gradually filling in a backward motion to complete a complete fill of the vertebral body and re-establish the support structure for the T12 vertebral body itself. Once the cement had hardened, the instruments were withdrawn. Hardcopy x-rays of the fluoroscopy were viewed. These were found to be very satisfactory. The patient tolerated this whole procedure well. He left the operating room in stable condition to his room for recovery. ESTIMATED BLOOD LOSS: MMODAL /[id number]
== END 2018-09-10 14:20 | disposition home or self-care (01) ==
LOC: JD.SDS 09:01
PROVIDERS: ATTEND Specialist
DX: M80.88XA Other osteoporosis with current pathological fracture, vertebra(e), initial encounter for fracture (principal); I10 Essential (primary) hypertension; E78.5 Hyperlipidemia, unspecified; E78.00 Pure hypercholesterolemia, unspecified; M10.9 Gout, unspecified; E87.6 Hypokalemia; F32.9 Major depressive disorder, single episode, unspecified; F41.9 Anxiety disorder, unspecified; Z79.02 Long term (current) use of antithrombotics/antiplatelets; Z79.82 Long term (current) use of aspirin; Z79.899 Other long term (current) drug therapy; Z88.8 Allergy status to other drugs, medicaments and biological substances; Z87.891 Personal history of nicotine dependence
CPT/HCPCS: 22513; 36415; 76000; 80048; A9270; J0690; J2001; J2250; J2405; J2704; J3010; J3370; J7040; J7120; Q9967; 01936; C1713